=== PATIENT | male | born 1950 | race Caucasian/White ===

== ENCOUNTER → 2018-04-30 00:37 | Outpatient (CLI) | payer MEDICARE, OTHER, SELFPAY ==
--- NOTE | 2018-04-30 08:44 | DI.REPORT_ITS ---
SYMPTOM/DIAGNOSIS: THYROID NODULE 04.1 THYROID ULTRASOUND: 04/30 Thyroid ultrasound was performed according to the usual protocol. Right thyroid lobe measures 41 x 15 x 16 mm and left thyroid lobe measures 49 x 31 x 29 mm. There is a 7 mm in diameter solid wall circumscribed nodule of the lower pole of the right thyroid lobe which is avascular. There is a predominantly cystic nodule with internal solid component an calcifications of the left thyroid lobe lower pole measuring about 31 23 x 28 mm. This was present on previous examination of 10/21/17 and is essentially unchanged in size and appearance on the current examination. Right thyroid lobe nodule is also unchanged. CONCLUSION: Stable appearance of bilateral thyroid nodules, the largest on the left measuring about 3 cm in greatest diameter as described above.
== END ==
PROVIDERS: PCP Nurse Practitioner; Visit Provider Otolaryngology
DX: E04.2 Nontoxic multinodular goiter (principal)
CPT/HCPCS: 76536

== ENCOUNTER 2018-06-22 09:05 | Outpatient (CLI) | payer MEDICARE, OTHER, SELFPAY ==
[2018-06-22 09:32] LABS: Abs Immature Grans 0.01 k/cumm (0.0-0.09); Absolute Basophil Count 0.03 k/cumm (0.0-0.2); Absolute Eosinophil Count 0.33 k/cumm (0.0-0.7); Absolute Lymphocyte Count 2.97 k/cumm (1.2-3.4); Absolute Monocyte Count 0.69 k/cumm (0.11-0.7); Absolute Neutrophil Count 2.11 k/cumm (1.2-6.7); Basophils % 0.5; Eosinophils % 5.4; HCT 42.6 % (40.0-50.0); HGB 14.2 g/dL (13.5-17.5); Immature Grans % 0.2; Lymphocytes % 48.4; Mean Corp. HGB Concentration 33.3 g/dL (32.0-36.0); Mean Corpuscular Hemoglobin 31.8 pg (27.0-33.0); Mean Corpuscular Volume 95.5 fL (80-95); Mean Platelet Volume 9.6 fL (8.0-11.0); Monocytes % 11.2; Neutrophils % 34.3; Platelet Count 286 x1000/uL (130-400); RBC 4.46 m/cumm (4.50-6.00); RBC Distribution Width 13.3 % (11.8-14.1); White Blood Cell Count 6.14 k/cumm (4.4-10.8)
[2018-06-22 11:12] LABS: ALT 21 U/L (12-78); AST 18 U/L (15-37); Albumin 3.7 g/dL (3.4-5.0); Alkaline Phosphatase 76 U/L (46-116); Anion Gap 7.9 mmol/L (3-11); BUN 17 mg/dL (7-18); Bilirubin, Total 0.5 mg/dL (0.2-1.0); CO2 27.1 mmol/L (21.0-32.0); CREATININE 0.85 mg/dL (0.70-1.30); Calcium 8.7 mg/dL (8.5-10.1); Chloride 105 mmol/L (98-107); Cholesterol 198 mg/dL (50-200); Glucose 83 mg/dL (70-100); HDL Cholesterol 56 mg/dL (40-60); LDL CHOLESTEROL 119 mg/dL (<100); Potassium 4.4 mmol/L (3.5-5.1); Sodium 140 mmol/L (136-145); TSH (W/Ref FT4) 1.57 uIU/mL (0.358-3.74); Total Protein 6.8 g/dL (6.4-8.2); Triglyceride 98 mg/dL (30-150)
== END 2018-06-22 09:25 ==
PROVIDERS: PCP Nurse Practitioner; Visit Provider Urology
DX: I10 Essential (primary) hypertension (principal); E04.2 Nontoxic multinodular goiter; Z13.220 Encounter for screening for lipoid disorders
CPT/HCPCS: 36415; 80053; 80061; 83721; 84443; 85025

== ENCOUNTER → 2018-06-29 08:01 | Outpatient (BNVA) | payer MEDICARE, OTHER, SELFPAY | PROVIDERS: Visit Provider Urology | DX: R39.198 Other difficulties with micturition (principal); R97.20 Elevated prostate specific antigen [PSA] | CPT/HCPCS: 99213 ==

== ENCOUNTER 2018-06-29 08:53 | Outpatient (CLI) | payer MEDICARE, OTHER, SELFPAY ==
[2018-06-30 10:41] LABS: PSA, Diagnostic 6.9 ng/ml (0-4.5)
== END 2018-06-29 09:13 ==
PROVIDERS: PCP Nurse Practitioner; Visit Provider Urology
DX: R97.20 Elevated prostate specific antigen [PSA] (principal)
CPT/HCPCS: 36415; 99213; 84153

== ENCOUNTER 2018-11-19 07:01 | Outpatient (CLI) | payer MEDICARE, OTHER, SELFPAY ==
[2018-11-19 09:39] LABS: ALT 27 U/L (12-78); AST 16 U/L (15-37); Albumin 3.9 g/dL (3.4-5.0); Alkaline Phosphatase 80 U/L (46-116); Anion Gap 8.9 mmol/L (3-11); BUN 11 mg/dL (7-18); Bilirubin, Total 0.3 mg/dL (0.2-1.0); CO2 26.1 mmol/L (21.0-32.0); CREATININE 0.82 mg/dL (0.70-1.30); Calcium 9.1 mg/dL (8.5-10.1); Chloride 106 mmol/L (98-107); Cholesterol 227 mg/dL (50-200); Glucose 97 mg/dL (70-100); HDL Cholesterol 44 mg/dL (40-60); LDL CHOLESTEROL 152 mg/dL (<100); Potassium 3.8 mmol/L (3.5-5.1); Sodium 141 mmol/L (136-145); Total Protein 7.8 g/dL (6.4-8.2); Triglyceride 178 mg/dL (30-150)
== END 2018-11-19 07:21 ==
PROVIDERS: PCP Nurse Practitioner; Visit Provider Nurse Practitioner
DX: E78.5 Hyperlipidemia, unspecified (principal); I10 Essential (primary) hypertension
CPT/HCPCS: 36415; 80053; 80061; 83721

== ENCOUNTER 2018-11-25 00:47 | Outpatient (CLI) | payer MEDICARE, OTHER, SELFPAY ==
--- NOTE | 2018-11-25 09:30 | DI.US_ITS ---
SYMPTOM/DIAGNOSIS: SCREENING FOR AAA, FORMER SMOKER, PERSONAL H/O NICOTINE DEPENDENCE, Z87.891 AORTA ULTRASOUND: There is no evidence of an abdominal aortic aneurysm. There is no evidence of an iliac aneurysm. The proximal abdominal aorta measures 2.4 by 2.4 cm. The mid abdominal aorta measures 2 by 2 cm. The distal abdominal measures 1.8 by 1.9 cm. The right and left iliac artery measures 1.1 by 1.1 cm. SUMMARY: No evidence of an abdominal aortic or iliac artery aneurysm.
== END 2018-11-25 01:07 ==
PROVIDERS: PCP Nurse Practitioner; Visit Provider Nurse Practitioner
DX: Z13.6 Encounter for screening for cardiovascular disorders (principal); Z87.891 Personal history of nicotine dependence; I10 Essential (primary) hypertension; E78.5 Hyperlipidemia, unspecified
CPT/HCPCS: 76706

== ENCOUNTER 2018-12-22 13:04 | Outpatient (CLI) | payer MEDICARE, OTHER, SELFPAY ==
[2018-12-23 09:34] LABS: PSA, Diagnostic 7.9 ng/ml (0-4.5)
== END 2018-12-22 13:24 ==
PROVIDERS: PCP Nurse Practitioner; Visit Provider Urology
DX: R97.20 Elevated prostate specific antigen [PSA] (principal)
CPT/HCPCS: 84153

== ENCOUNTER → 2018-12-28 08:18 | Outpatient (BNVA) | payer MEDICARE, OTHER, SELFPAY | PROVIDERS: PCP Nurse Practitioner; Visit Provider Urology | DX: R97.20 Elevated prostate specific antigen [PSA] (principal); R39.11 Hesitancy of micturition; R35.0 Frequency of micturition | CPT/HCPCS: 99213 ==

== ENCOUNTER 2019-06-21 13:07 | Outpatient (CLI) | payer MEDICARE, OTHER, SELFPAY ==
[2019-06-22 09:54] LABS: PSA, Diagnostic 7.4 ng/ml (0-4.5)
== END 2019-06-21 13:27 ==
PROVIDERS: PCP Nurse Practitioner; Visit Provider Urology
DX: R97.20 Elevated prostate specific antigen [PSA] (principal)
CPT/HCPCS: 36415; 84153

== ENCOUNTER → 2019-06-28 08:00 | Outpatient (BNVA) | payer MEDICARE, OTHER, SELFPAY | PROVIDERS: PCP Nurse Practitioner; Referring Provider Nurse Practitioner; Visit Provider Urology | DX: R97.20 Elevated prostate specific antigen [PSA] (principal) | CPT/HCPCS: 99213 ==

== ENCOUNTER 2019-07-22 09:27 | Outpatient (CLI) | payer MEDICARE, OTHER, SELFPAY ==
--- NOTE | 2019-07-22 09:15 | DI.RAD_ITS ---
EXAM: XR CHEST 2V PA LATERAL CLINICAL HISTORY: ANDRES,excessive sweating,essential HTN,hyperlipidemia, I10, E78.5, R06.09,R61 COMPARISON: No exams were available for comparison FINDINGS: The heart is not enlarged. There is a mild left convex thoracic scoliosis. Lungs are predominantly clear. Note is made of small area of nodularity projected over the posterior aspect of the right 9th rib, this is likely nipple shadow. Question corresponding left-sided nodularity but somewhat asymme tric. The possibility of intrapulmonary nodule not excluded. Repeat PA chest with nipple markers req uested. No pleural effusion seen. No pneumothorax. No consolidation. IMPRESSION: Repeat PA chest with nipple markers requested to evaluate nodular radiodensities projected over the l christina bases as described above. Otherwise unremarkable study.
== END 2019-07-22 09:47 ==
PROVIDERS: PCP Nurse Practitioner; Visit Provider Nurse Practitioner
DX: R06.09 Other forms of dyspnea (principal); R61 Generalized hyperhidrosis; J98.4 Other disorders of lung
CPT/HCPCS: 71046

== ENCOUNTER 2019-07-23 07:22 | Outpatient (CLI) | payer MEDICARE, OTHER, SELFPAY ==
[2019-07-23 08:28] LABS: HCT 45.2 % (40.0-50.0); HGB 14.9 g/dL (13.5-17.5); Mean Corpuscular Hemoglobin 31.8 pg (27.0-33.0); Mean Corpuscular Volume 96.6 fL (80-95); Mean Platelet Volume 10.5 fL (8.0-11.0); Platelet Count 314 x1000/uL (130-400); RBC 4.68 m/cumm (4.50-6.00); White Blood Cell Count 5.71 k/cumm (4.4-10.8)
[2019-07-23 08:49] LABS: ALT 31 U/L (16-63); AST 17 U/L (15-37); Albumin 3.9 g/dL (3.4-5.0); Alkaline Phosphatase 65 U/L (46-116); Anion Gap 8.4 mmol/L (3-11); BUN 18 mg/dL (7-18); Bilirubin, Total 0.6 mg/dL (0.2-1.0); CO2 28.6 mmol/L (21.0-32.0); CREATININE 0.86 mg/dL (0.70-1.30); Calcium 9.2 mg/dL (8.5-10.1); Calculated LDL 147 mg/dL; Chloride 105 mmol/L (98-107); Cholesterol 230 mg/dL (50-200); Glucose 89 mg/dL (70-100); HDL Cholesterol 50 mg/dL (40-60); Potassium 4.6 mmol/L (3.5-5.1); Sodium 142 mmol/L (136-145); Total Protein 7.2 g/dL (6.4-8.2); Triglyceride 168 mg/dL (30-150)
== END 2019-07-23 07:42 ==
PROVIDERS: PCP Nurse Practitioner; Visit Provider Nurse Practitioner
DX: I10 Essential (primary) hypertension (principal); E78.5 Hyperlipidemia, unspecified; E04.1 Nontoxic single thyroid nodule
CPT/HCPCS: 36415; 80053; 80061; 85027; 84443

== ENCOUNTER 2019-08-04 00:41 | Outpatient (CLI) | payer MEDICARE, OTHER, SELFPAY ==
--- NOTE | 2019-08-04 10:10 | DI.US_ITS ---
APPROVED REPORT EXAM: Comprehensive 2D, Doppler, and color-flow Echocardiogram Patient Location: Out-Patient [facility]: [facility] ([place]) Rhythm: Bradycardia Indications: ANDRES hyperlipidemia, HTN, Hyperhidrosis. r06.09, r61, Conclusion Left Ventricle : The left ventricle is normal size. The left ventricular systolic function is normal. Borderline concentric left ventricular hypertrophy. There is normal LV segmental wall motion. Diasto lic function is indeterminate. There is evidence of elevated filling pressures. LVEF is 60-65%. Right Ventricle : The right ventricle is normal size. The right ventricular systolic function is norm al. Atria : Left atrium is moderately dilated. Right atrium is mildly dilated. Aortic Valve : Aortic valve is trileaflet. There is no aortic valvular stenosis. No aortic regurgitat ion is present. Mitral Valve : Mitral valve leaflets are thickened. Trivial mitral regurgitation. No evidence of mitr al valve stenosis. Tricuspid Valve : Tricuspid valve is not well visualized. Mild tricuspid regurgitation. Great Vessels : The IVC is dilated but collapses >50% with inspiration. Estimated RVSP is 20-24 mmHg . There is no prior echocardiogram available for comparison. Wall motion Left Ventricle The left ventricle is normal size. The left ventricular systolic function is normal. Borderline isidro ntric left ventricular hypertrophy. There is normal LV segmental wall motion. Diastolic function is i ndeterminate. There is evidence of elevated filling pressures. LVEF is 60-65%. Right Ventricle The right ventricle is normal size. The right ventricular systolic function is normal. Atria Left atrium is moderately dilated. Right atrium is mildly dilated. Aortic Valve Aortic valve is trileaflet. There is no aortic valvular stenosis. No aortic regurgitation is present. Mitral Valve Mitral valve leaflets are thickened. No evidence of mitral valve stenosis. Trivial mitral regurgitati on. Tricuspid Valve Tricuspid valve is not well visualized. Mild tricuspid regurgitation. Pulmonic Valve The pulmonary valve is normal in structure. Mild pulmonic regurgitation. Great Vessels The aortic root is normal in size. The ascending aorta is normal in size. The IVC is dilated but sheila apses >50% with inspiration. Estimated RVSP is 20-24 mmHg. Pericardium There is no pericardial effusion. 2D Dimensions IVSd 1.15 cm M: 0.6-1.2 LV EDV A2C 100.20 mL PWd 1.15 cm M: 0.6 - 1.2 LV EDV A4C 82.70 mL LVDd 4.80 cm M: 4.2 - 5.8 LA Volume Index A2C 34.01 mL/m2 LVDs 3.45 cm M: 2.5 - 4.0 LA Volume Index A4C 36.05 mL/m2 Aortic Root 3.25 cm M: 3.1 - 3.7 LA Volume Index Biplane 35.39 mL/m2 RA Area A4C 20.26 cm2 LA Area A4C 20.49 cm2 LVOT 2.10 cm (M/F) 1.5-2.5 LA Area A2C 20.12 cm2 Ascending Aorta 3.46 cm M: 2.6 - 3.4 EF AP4 63.24 % LVEF (Teich) 54.34 % EF AP2 73.65 % LVEF (Marcus's) 68.34 % M: 52 - 72 EF BP 68.34 % LV Volume 75.15 mL M: 62 - 150 LV Volume Index 41.51 mL/m2 M: 34 - 74 FS 28.15 % LV Diastology E/A Ratio 1.4 MED E' 0.07 (>0.07 m/s) LV E/e MED 17.00 (<14) LAT E' 0.10 (>0.1 m/s) LV E/e LAT 11.80 (<14) Pulm Vein s 0.72 m/s PV S/D Ratio 1.41 Pulm Vein d 0.51 m/s Pulm Vein a 0.32 m/s A-A Duration 135.37 msec Aortic Valve LVOT Area 3.60 cm2 LVOT Peak Don. 1.15 m/s LVOT Mean Don. 0.76 m/s LVOT Peak Gr. 5.45 mmHg CAROLANN Vmax Index 1.33 cm2/m2 LVOT Mean Gr. 2.70 mmHg LVOT VTI 0.25 m CAROLANN Mean Don. Index 1.26 cm2/m2 AoV Peak Don. 1.74 (0.5-1.3 m/s) AoV Mean Don. 1.20 m/s AO Peak GR. 12.16 mmHg AO Mean GR. 6.40 (<5 mmHg) CAROLANN (VTI) 3.50 (2.5-4.5 cm2) CAROLANN (VTI) Index 1.95 cm/m2 Mitral Valve MV E Max Don. 1.22 (0.4-1.3 m/s) MV A Velocity 0.85 (0.4-1.3 m/s) E/A Ratio 1.36 MV Decel. Time 160.20 (160-240 msec) MV PHT 46.46 msec MVA PHT 4.70 cm2 Pulmonary Valve PV Peak Velocity 0.93 (0.5-1.5 m/s) Tricuspid Valve TR P. Velocity 2.27 m/s TV Regurg Vmax 2.27 m/s RAP Estimate 8.00 mmHg RVSP 29.00 mmHg TR P. Gradient 20.50 mmHg
== END 2019-08-04 01:01 ==
PROVIDERS: PCP Nurse Practitioner; Visit Provider Nurse Practitioner
DX: R06.09 Other forms of dyspnea (principal); I10 Essential (primary) hypertension; E78.5 Hyperlipidemia, unspecified; I51.7 Cardiomegaly; R61 Generalized hyperhidrosis
CPT/HCPCS: 93306

== ENCOUNTER 2019-08-05 02:05 | Outpatient (CLI) | payer MEDICARE, OTHER, SELFPAY ==
--- NOTE | 2019-08-05 08:30 | ETT_ITS ---
APPROVED REPORT Exam: Exercise Treadmill Patient Location: Out-Patient Room/Bed: Stress Nurse: Melvi Lagos RN BMI: 24.58 Baseline Rhythm: Bradycardia Indications: Dyspnea. Hypertension. Hyperlipidemia. Hyperhidrois. Medical History Medical History: HTN Cardiac Medications: Aspirin, Lisinopril Allergies: No known drug allergies Cardiac Risk Factors: HTN, Hyperlipidemia, former smoker 1 pack a day for 20 years Pretest Chest Pain Characteristics: Dyspnea Exercise History: Physically active Physical Disabilities: Legs. Wjjotkr-Asalg-ncpgh disorder. Lung Sounds: Clear to auscultation Heart Sounds: Irregular, Irregular Stress Test Details Test: Exercise stress testing was performed using a Luiz protocol. Rest Stress HR Resting HR: 43 bpm Max Heart Rate (APMHR): 153 bpm Resting HR Supine: 43 bpm Target HR (85% APMHR): 130 bpm Resting HR Standin bpm Max HR Achieved: 128 bpm % of APMHR: 83 Recovery HR: 76 bpm HR response to stress: Normal HR response to stress BP Resting BP Supine: 162/82 mmHg Resting BP Standin/74 mmHg Max BP: 190/80 mmHg Recovery BP: 168/90 mmHg BP response to stress: Normal blood pressure response to stress. ECG Resting ECG: Sinus Bradycardia Ectopy: PACs. ST Change: No significant ST segment changes. Arrhythmia: None Recovery ECG: Sinus Rhythm Recovery ST Change: No significant ST segment changes. Recovery Arrhythmia: None Clinical Time of Stop for Luiz: 0903 Reason for Termination: Unable to tolerate stage 4 due to legs/balance issues Stress Symptoms: Leg Fatigue Exercise duration: 9 min3 sec Highest Stage Achieved: Stage 3: 3.4 mph at 14% grade. Exercise capacity: 10.24 METs Functional Capacity: Average Capacity Scale: Active Angina Score: None Stress ECG Conclusion 1. She exercised for 9 minutes (10 METS) presents average exercise capacity. 2. There was no evidence of ischemia on ECG during stress. 3. The Linares Score (8) estimates an annual cardiovascular mortality of 0% and a five year survival of 95%. Using the Linares Score there is a low probability of any angiographic coronary disease. Protocol Used: Luiz Protocol Stress Test Summary STAGE Time (mins) Speed (mph) Grade (%) HR BP SYMPTOMS METS Supine 43 162/82 Standing 59 148/74 1 3 1.7 10 90 160/80 4.6 2 6 2.5 12 103 174/82 7 3 9 3.4 14 128 10.2 4 12 4.2 16 5 15 5.0 1 min recovery 108 188/80 3 min recovery 83 190/80 6 min recovery 76 168/90
== END 2019-08-05 02:25 ==
PROVIDERS: PCP Nurse Practitioner; Visit Provider Nurse Practitioner
DX: R06.09 Other forms of dyspnea (principal); I10 Essential (primary) hypertension; E78.5 Hyperlipidemia, unspecified; R61 Generalized hyperhidrosis; Z87.891 Personal history of nicotine dependence
CPT/HCPCS: 93016; 93018; 93017

== ENCOUNTER 2019-11-25 01:37 | Outpatient (CLI) | payer MEDICARE, OTHER, SELFPAY ==
--- NOTE | 2019-11-25 10:00 | DI.US_ITS ---
EXAM: US THYROID CLINICAL HISTORY: E04.1 THYROID NODULE. TECHNIQUE: Ultrasound thyroid performed using standard protocol. COMPARISON: THYROID ULTRASOUND from 10/21/2017 THYROID ULTRASOUND from 04/30/2018 FINDINGS: ISTHMUS: 3 mm, 4 millimeter circumscribed nodule. RIGHT LOBE: Size: 4.2 x 1.4 x 1.3 cm Echogenicity: Normal. Vascularity: Normal. Nodules: 6 millimeter colloid cyst LEFT LOBE: Size: 5.1 x 2.6 x 3.1 cm Echogenicity: Normal. Vascularity: Normal. Nodules: 3.0 x 2.2 x 3.3 centimeter cystic nodule with internal solid components showing vascularity. Findings appear unchanged when compared with previous exams. OTHER FINDINGS: No adenopathy in the neck IMPRESSION: Stable appearance of mixed cystic and solid mass in the mid to lower pole of the left lobe of the thy roid. DATA REPOSITORY:
== END 2019-11-25 01:57 ==
PROVIDERS: PCP Nurse Practitioner; Visit Provider Otolaryngology
DX: E04.1 Nontoxic single thyroid nodule (principal); E07.89 Other specified disorders of thyroid
CPT/HCPCS: 76536

== ENCOUNTER 2020-01-11 01:01 | Outpatient (CLI) | payer MEDICARE, OTHER, SELFPAY ==
[2020-01-12 10:46] LABS: PSA, Diagnostic 7.4 ng/mL (0.0-4.5)
== END 2020-01-11 01:21 ==
PROVIDERS: PCP Nurse Practitioner; Visit Provider Urology
DX: R97.20 Elevated prostate specific antigen [PSA] (principal)
CPT/HCPCS: 36415; 84153

== ENCOUNTER → 2020-01-14 10:10 | Outpatient (BNVA) | payer MEDICARE, OTHER, SELFPAY | PROVIDERS: PCP Nurse Practitioner; Referring Provider Nurse Practitioner; Visit Provider Urology | DX: R97.20 Elevated prostate specific antigen [PSA] (principal) | CPT/HCPCS: 99213; 99442 ==

== ENCOUNTER 2020-07-18 03:08 | Outpatient (CLI) | payer MEDICARE, OTHER, SELFPAY ==
[2020-07-20 12:48] LABS: PSA, Diagnostic 7.7 ng/ml (0-4.5)
== END 2020-07-18 03:28 ==
PROVIDERS: PCP Nurse Practitioner; Visit Provider Urology
DX: R97.20 Elevated prostate specific antigen [PSA] (principal)
CPT/HCPCS: 36415; 84153

== ENCOUNTER → 2020-07-25 08:28 | Outpatient (BNVA) | payer MEDICARE, OTHER, SELFPAY | PROVIDERS: PCP Nurse Practitioner; Referring Provider Nurse Practitioner; Visit Provider Urology | DX: R19.7 Diarrhea, unspecified (principal); R97.20 Elevated prostate specific antigen [PSA] | CPT/HCPCS: 99213 ==

== ENCOUNTER 2021-01-04 04:05 | Outpatient (CLI) | payer MEDICARE, OTHER, SELFPAY ==
[2021-01-04 09:28] LABS: HCT 43.8 % (40.0-50.0); HGB 14.2 g/dL (13.5-17.5); MCH 31.3 pg (27.0-33.0); MCHC 32.4 % (32.0-36.0); MCV 96.5 fL (80-95); MPV 9.7 fL (8.0-11.0); Platelet Count 331 10^3/uL (130-400); RBC 4.54 10^6/uL (4.36-5.78); RDW 12.2 % (11.8-14.1); RDW-SD 43.4 fL; WBC 6.57 10^3/uL (4.4-10.8)
[2021-01-04 10:13] LABS: ALT 29 U/L (16-63); AST 16 U/L (15-37); Albumin 3.8 g/dL (3.4-5.0); Alkaline Phosphatase 78 U/L (46-116); Anion Gap 8.3 mmol/L (3-11); BUN 17 mg/dL (7-18); Bilirubin, Total 0.4 mg/dL (0.2-1.0); CO2 27.7 mmol/L (21.0-32.0); CREATININE 0.9 mg/dL (0.70-1.30); Calcium 9.1 mg/dL (8.5-10.1); Calculated LDL 128 mg/dL (<100); Chloride 108 mmol/L (98-107); Cholesterol 210 mg/dL (<200); Glucose 92 mg/dL (74-106); HDL Cholesterol 50 mg/dL (40-60); Potassium 4.9 mmol/L (3.5-5.1); Sodium 144 mmol/L (136-145); Total Protein 7.1 g/dL (6.4-8.2); Triglyceride 164 mg/dL (<150)
[2021-01-04 18:12] LABS: PSA, Diagnostic 7.7 ng/mL (0.0-4.5)
== END 2021-01-04 04:06 | disposition home or self-care (01) ==
LOC: LBO 04:06
PROVIDERS: PCP Nurse Practitioner; Visit Provider Urology
DX: I10 Essential (primary) hypertension (principal); E78.5 Hyperlipidemia, unspecified; R97.20 Elevated prostate specific antigen [PSA]; N52.9 Male erectile dysfunction, unspecified; G47.33 Obstructive sleep apnea (adult) (pediatric); G60.0 Hereditary motor and sensory neuropathy; H90.3 Sensorineural hearing loss, bilateral
CPT/HCPCS: 36415; 80053; 80061; 85027; 84153

== ENCOUNTER → 2021-01-26 08:58 | Outpatient (BNVA) | payer MEDICARE, OTHER, SELFPAY | PROVIDERS: PCP Nurse Practitioner; Referring Provider Nurse Practitioner; Visit Provider Urology | DX: R35.1 Nocturia (principal); R97.20 Elevated prostate specific antigen [PSA] | CPT/HCPCS: 99213 ==

== ENCOUNTER 2021-07-23 03:54 | Outpatient (CLI) | payer MEDICARE, SELFPAY ==
[2021-07-23 17:07] LABS: PSA, Diagnostic 7.5 ng/mL (0.0-4.5)
== END 2021-07-23 03:55 | disposition home or self-care (01) ==
LOC: LBO 03:54
PROVIDERS: PCP Nurse Practitioner; Visit Provider Urology
DX: R97.20 Elevated prostate specific antigen [PSA] (principal)
CPT/HCPCS: 36415; 84153

== ENCOUNTER → 2021-07-27 08:24 | Outpatient (BNVA) | payer MEDICARE, OTHER, SELFPAY | PROVIDERS: PCP Nurse Practitioner; Referring Provider Nurse Practitioner; Visit Provider Urology | DX: R39.89 Other symptoms and signs involving the genitourinary system (principal); R97.20 Elevated prostate specific antigen [PSA] | CPT/HCPCS: 99213 ==

== ENCOUNTER 2021-12-12 03:12 | Outpatient (CLI) | payer MEDICARE, SELFPAY ==
[2021-12-12 08:33] LABS: HCT 43.8 % (40.0-50.0); HGB 14.3 g/dL (13.5-17.5); MCHC 32.6 % (32.0-36.0); MPV 9.4 fL (8.0-11.0); Platelet Count 272 10^3/uL (130-400); RBC 4.47 10^6/uL (4.36-5.78); RDW 12.8 % (11.8-14.1)
[2021-12-12 10:02] LABS: ALT 36 U/L (16-63); AST 24 U/L (15-37); Alkaline Phosphatase 67 U/L (46-116); Anion Gap 6.6 mmol/L (3-11); BUN 17 mg/dL (7-18); Bilirubin, Total 0.6 mg/dL (0.2-1.0); CO2 28.4 mmol/L (21.0-32.0); CREATININE 0.9 mg/dL (0.70-1.30); Chloride 106 mmol/L (98-107); Glucose 86 mg/dL (74-106); Potassium 4.9 mmol/L (3.5-5.1); Sodium 141 mmol/L (136-145); Total Protein 7.3 g/dL (6.4-8.2)
[2021-12-13 14:53] LABS: Calculated LDL 147 mg/dL (<100); Cholesterol 248 mg/dL (<200); HDL Cholesterol 62 mg/dL (40-60); Triglyceride 196 mg/dL (<150)
== END 2021-12-12 03:13 | disposition home or self-care (01) ==
LOC: LBO 03:13
PROVIDERS: PCP Nurse Practitioner; Visit Provider Nurse Practitioner
DX: E78.5 Hyperlipidemia, unspecified (principal); I10 Essential (primary) hypertension
CPT/HCPCS: 36415; 80053; 80061; 85027

== ENCOUNTER 2022-01-15 16:45 | Emergency (ER) | payer MEDICARE, SELFPAY ==
[2022-01-15] VITALS (26 sets, daily range): BP systolic 142–180; BP diastolic 70–99; PULSE 48–75; RESP 10–21; TEMP 36.6; O2SAT 97–100
--- NOTE | 2022-01-15 17:24 | ED.GENADUL_ITS ---
Discharge Plan Disposition Patient Disposition: HOME Condition: Stable Discharge Details Clinical Impression: Acute GI bleeding Primary Care Provider: Anne-Marie Palencia ED Provider: Gonzalez Chew Home Meds and New Rx's Prescriptions: Continued lisinopril 10 mg tablet 10 mg PO DAILY Qty: 90 3RF lidocaine 1.8 % adhesive patch,medicated 1 patch topical DAILY 0RF Rx Instructions: leave on most painful area for up to 12 hrs loratadine 10 MG tablet 10 mg PO PRN 0RF aspirin [Aspir-81] 81 MG tablet,delayed release (DR/EC) 81 mg PO DAILY Qty: 1 11RF acetaminophen 500 MG tablet 1,000 mg PO PRN 0RF ibuprofen 600 MG tablet 600 mg PO PRN0RF Varicella-Zoster Ge/As01b/Pf [Shingrix Vial Kit] 50 MCG INJ 50 mcg IM ONCE Qty: 1 1RF Discharge Instructions Instructions: Rectal Bleeding (ED) Additional Instructions: Please watch for new or worsening symptoms and return to the ER for any concerns. I personally spoke with our surgical team, Dr. Springer, will be having her office reach out to you to set up an outpatient appointment and likely colonoscopy for further evaluation. Referrals: Leatha Springer DO [OSTEOPATHIC DOCTOR] - Discharge Data Discharge Date/Time-TO BE ENTERED AT DEPARTURE: 01/15/22 19:25 Medical Decision Making 71-year-old gentleman presents to the ER reporting blood in his stool with his last 3 bowel movements this afternoon, otherwise is asymptomatic. Denies history of GI bleed. Reports last colonoscopy approximately 9 years ago. Clinically he appears well, nontoxic, hemodynamically stable. Rectal examination reveals dried blood, he does have a single external nontender hemo rrhoid but I am unable to visualize an obvious source of bleeding. Please obtain IV access, routine screening laboratory values and coags and reassess. Laboratory values reveal no evidence of leukocytosis. Hemoglobin of 12.2 hematocrit 37.1 which is down respectively from 14.3 and 43.8 back in November. Platelet count 321. Electrolytes unremarkable, creatinine 0.2 with a GFR greater than 60. BUN 18. Lipase 99. In the setting of no abdominal pain, fever, leukocytosis, etc., I feel as though CT imaging of the abdomen is likely little value in this case. Patient likely requires colonoscopy. Patient remains hemodynamically stable. He has mild anemia but otherwise is asymptomatic, appears well. He does have an external hemorrhoid with dried blood, question is simply could be secondary to bleeding hemorrhoid; however, I do believe he should have an urgent colonoscopy. I do not believe that he requires admission. I contacted our surgical team, Dr. Springer, we discussed his case. She agrees the patient does not require admission. She will have her team reach out to him tomorrow to set up outpatient evaluation and colonoscopy. This plan was discussed both with patient and who are comfortable. Strict discharge and return precautions were provided. Patient understands, is agreeable to this plan, and has no additional questions or concerns upon discharge. This documentation was generated using [employer]ation system, please disregard any oddities of phrase or misspellings. Medical Records Medical records reviewed: Yes I reviewed the patient's medical records. Lab Data Lab results reviewed: Yes I reviewed the patient's lab results. Labs: Laboratory Tests Range/Units 01/15/22 01/15/22 01/15/22 17:26 17:26 17:26 WBC (4.4-10.8) 10^3/uL 8.10 RBC (4.36-5.78) 10^6/uL 3.82 L Hgb (13.5-17.5) g/dL 12.2 L Hct (40.0-50.0) % 37.1 L MCV (80-95) fL 97 H MCH (27.0-33.0) pg 31.9 MCHC (32.0-36.0) % 32.9 RDW (11.8-14.1) % 12.8 Plt Count (130-400) 10^3/uL 321 MPV (8.0-11.0) fL 9.6 Immature Gran % 0.2 Neutrophils % 56.1 Lymphocytes % 29.6 Monocytes % 11.5 Eosinophils % 2.2 Basophils % 0.4 Nucleated RBC % (0.0-0.3) % 0.0 Absolute Neutrophils (1.2-6.7) 10^3/uL 4.54 Absolute Lymphocytes (1.2-3.4) 10^3/uL 2.40 Absolute Monocytes (0.1-0.8) 10^3/uL 0.93 H Absolute Eosinophils (0.0-0.7) 10^3/uL 0.18 Absolute Basophils (0.0-0.2) 10^3/uL 0.03 PT (9.3-11.0) sec 9.9 INR (0.9-1.1) 1.0 Sodium (136-145) mmol/L 139 Potassium (3.5-5.1) mmol/L 4.4 Chloride (98-107) mmol/L 106 Carbon Dioxide (21.0-32.0) mmol/L 25.8 Anion Gap (3-11) mmol/L 7.2 BUN (7-18) mg/dL 18 Creatinine (0.70-1.30) mg/dL 0.8 Estimated GFR/1.73 m2 (mL/min/1.73m2) >= 60.00 Glucose (74-106) mg/dL 107 H Calcium (8.5-10.1) mg/dL 8.4 L Total Bilirubin (0.2-1.0) mg/dL 0.3 AST (15-37) U/L 20 ALT (16-63) U/L 26 Alkaline Phosphatase (46-116) U/L 78 Total Protein (6.4-8.2) g/dL 7.1 Albumin (3.4-5.0) g/dL 3.7 Lipase (73-393) U/L 99 HPI General Mode of arrival: ambulatory . Date/Time Provider Initiated Documentation: 01/15/22 16:53 . Limitations to Documentation: no limitations . Information obtained by: patient and family . HPI Narrative: This is a 71-year-old gentleman, past medical history that includes hypertension, chronic low back pain, not anticoagulated, reports his last colonoscopy about 9 years ago, presenting to the ER today reporting 3 bowel movements with bright red blood mixed in. He states he had a normal bowel movement this morning and then subsequently 3 loose bowel movements this afternoon with blood. He denies history of GI bleeding, easy bruising or bleeding. He denies recent illness or trauma, headache, weakness, fever, visual changes, chest pain, shortness of breath, abdominal pain, nausea, vomiting, dysuria, hematuria, black tarry stools. He does admit to a history of hemorrhoids. Denies any rectal pain. Related Data Home Medications Medication Instructions Recorded Confirmed aspirin 81 mg tablet,delayed 81 mg PO DAILY #1 tab-cap 03/07/14 11/29/21 release (Aspir-) loratadine 10 mg tablet 10 mg PO PRN 03/07/14 11/29/21 acetaminophen 500 mg tablet 1,000 mg PO PRN 01/12/18 11/29/21 ibuprofen 600 mg tablet 600 mg PO PRN 01/12/18 11/29/21 lidocaine 1.8 % topical patch 1 patch TOPICAL DAILY 11/29/21 11/29/21 lisinopril 10 mg tablet 10 mg PO DAILY #90 tab 12/17/21 12/17/21 Previous Rx's Medication Instructions Recorded lisinopril 10 mg tablet 10 mg PO DAILY #90 tab 12/17/21 Allergies Allergy/AdvReac Type Severity Reaction Status Date / Time Environmental Allergy Mild Rhinitis Uncoded 01/15/22 16:53 General Stated Complaint: GI Bleed ANDRZEJ: 2 Review of Systems Constitutional Constitutional: Denies fatigue, Denies fever(s), Denies headache(s) and Denies weakness Eyes Eyes: Denies change in vision ENT Ears, Nose, Mouth, and Throat: Denies headache(s) and Denies neck pain Cardiovascular Cardiovascular: Denies chest pain and Denies dyspnea Respiratory Respiratory: Denies cough and Denies dyspnea Gastrointestinal Gastrointestinal: Denies abdominal pain, Denies melena, Reports hematochezia, Denies constipation, Denies diarrhea, Reports loose stools, Denies nausea and Denies vomiting Genitourinary Genitourinary: Denies hematuria and Denies dysuria Musculoskeletal Musculoskeletal: Reports back pain (chronic) and Denies neck pain Integumentary/Breasts Skin/Breast: Denies rash Neurologic Neurologic: Denies headache(s) and Denies weakness Endocrine Endocrine: Denies fatigue Hematologic/Lymphatic Hematologic/Lymphatic: Denies easy bleeding and Denies easy bruising PFSH All Active Problems Acute GI bleeding (Acute) Gait disorder (Acute) Balance disorder (Acute) Conductive hearing loss, external ear (Acute) Impacted cerumen, bilateral (Acute) Left thyroid nodule (Acute) Insomnia, unspecified (Acute) Obstructive sleep apnea (adult) (pediatric) (Acute) Collapse of left external ear canal (Acute) Sensorineural hearing loss (SNHL) of both ears (Acute) Impacted cerumen of right ear (Acute) Fatigue (Acute) SOB (shortness of breath) (Acute) 3/14/20 Sleep Study ( [facility]) Witnessed apneic spells (Acute) Bilateral foot pain (Acute) reported 09/21/18-[facility]. Dr. Brando Franco. Thyroid nodule (Acute 10/30/17) ENT 10/30/17 recheck in 6 months RH 04/30/18 thyroid US-no change in L sided nodule per ov note- 11/25/19 follow up in 1 yr. cgc Sacral radiculopathy (Acute 02/02/14) S/P carpal tunnel release (Acute 02/03/18) Low back pain (Acute 02/02/14) Hyperlipidemia (Acute 03/07/14) PCEq risk 11.2%; LDL baseline 134; declines statin Essential hypertension (Acute 06/19/16) Erectile dysfunction of organic origin (Acute 03/14/17) Elevated PSA (Acute 12/29/17) DJD (degenerative joint disease), cervical (Acute 10/08/17) 10/07/17 MRI central spinal stenosis. No cord impingment Tvtoyvk-Dljcw-Gokvy disease type 1 (Acute 02/02/14) Arthritis of spine (Acute 02/02/14) Surgical History H/O colonoscopy H/O foot surgery H/O vasectomy History of carpal tunnel surgery of right wrist History of meniscectomy of left knee Family History Other Cancer Muscular dystrophy Social History Smoking/Tobacco Use Status: Former Tobacco Use Smoking risk assessment performed?: Yes Alcohol Intake: current Alcohol Intake frequency: 3 or more drinks per day Alcohol type: wine Details: 3 good glasses of wine a day. Drug use: Never Substance use type: does not use Household members: spouse Housing: house Number of Children: 1 Communication Needs: Hard of Hearing and Corrective Lenses Pets and animals: Yes (1 cat) Pets and animals: cat(s) What is your relationship status?: Panel score (0-1 are the most socially isolated patients): 1 Seatbelt use: always Drive intox or ride w/intox local intermodal truck driver: No Working smoke detector in home: Yes Fire extinguisher in home: Yes Carbon monox detector in home: No Do you feel safe in your relationship?: Yes Exam Const General: cooperative, healthy appearing, comfortable and no acute distress Orientation: alert, awake and oriented x3 HENMT Head: normal to inspection, normocephalic and atraumatic Face and sinus: normal facial exam Mouth: moist mucous membranes Eyes General: appearance normal, both eyes and all related structures Conjunctivae: conjunctivae normal Neck Neck: normal visual inspection, full ROM, trachea midline and supple Resp Effort & Inspection: normal respiratory effort and able to speak in complete sentences Auscultation: clear to auscultation bilaterally Cardio Rate: regular rate Rhythm: regular rhythm GI Inspection: normal to inspection Palpation: soft, not firm, no guarding, no pulsatile masses and nontender Auscultation: normal bowel sounds Rectal Exam: normal sphincter tone, abnormal stool blood-tinged, heme positive stool and hemorrhoids (External, nontender, nonthrombosed. Dried blood but no active bleeding) Back/Spine/Pelvis Back: No back tenderness Skin General skin exam: no rashes or lesions noted Neuro General: patient alert, patient awake, moves all extremities and no focal motor deficits Cognition: normal cognition Speech: speech normal Gait: normal gait Motor: muscle tone normal throughout Sensory Exam: no sensory deficits noted Extrem General: normal to inspection, full ROM, capillary refill normal, no pedal edema and no calf tenderness Psych Appearance: grossly normal Mental Status: mental status grossly normal Course Vital Signs Vital signs: Vital Signs Temperature 36.6 C 01/15/22 16:49 Pulse 75 01/15/22 16:49 Blood Pressure 177/99 H 01/15/22 16:49 Pulse Oximetry 99 01/15/22 16:49 Temperature 36.6 C 01/15/22 16:49 Temperature Source Temporal Artery Scan 01/15/22 16:49 Pulse 75 01/15/22 16:49 Respiratory Effort Non-Labored 01/15/22 16:51 Blood Pressure 177/99 H 01/15/22 16:49 Blood Pressure Position Sitting 01/15/22 16:49 Pulse Oximetry 99 01/15/22 16:49 Oxygen Delivery Method Room Air 01/15/22 16:49 Oxygen Flow Rate 0 01/15/22 16:49 Pain Level 0 01/15/22 16:49 PAWSS Have you Been Recently Intoxicated or Drunk Within the Last 30 days?: Yes Have you Ever Experienced Previous Episodes of Alcohol Withdrawal?: No Have you ever Experienced Withdrawal Seizures?: No Have you ever Experienced Delirium Tremens(DT)s?: No Have you ever undergone Alcohol Rehabilitation Treatment (i.e, inpt ot outpatient treatment programs)?: No Have you ever Experienced Blackouts?: No Have you ever Combined Alcohol with other Downers within the last 90 days?: No Have you ever Combined Alcohol with any other Substance of Abuse during the last 90 days?: No Result: 1
[2022-01-15 17:40] LABS: Abs Immature Grans 0.02 10^3/uL (0.0-0.06); Absolute Basophil Count 0.03 10^3/uL (0.0-0.2); Absolute Eosinophil Count 0.18 10^3/uL (0.0-0.7); Absolute Monocyte Count 0.93 10^3/uL (0.1-0.8); Absolute Neutrophil Count 4.54 10^3/uL (1.2-6.7); Basophils % 0.4; Eosinophils % 2.2; HCT 37.1 % (40.0-50.0); HGB 12.2 g/dL (13.5-17.5); Immature Grans % 0.2; Lymphocytes % 29.6; MCH 31.9 pg (27.0-33.0); MCHC 32.9 % (32.0-36.0); MCV 97 fL (80-95); MPV 9.6 fL (8.0-11.0); Monocytes % 11.5; Neutrophils % 56.1; Platelet Count 321 10^3/uL (130-400); RBC 3.82 10^6/uL (4.36-5.78); RDW 12.8 % (11.8-14.1); RDW-SD 45.8 fL
[2022-01-15 17:45] LABS: Prothrombin Time 9.9 sec (9.3-11.0)
[2022-01-15 18:01] LABS: ALT 26 U/L (16-63); AST 20 U/L (15-37); Albumin 3.7 g/dL (3.4-5.0); Alkaline Phosphatase 78 U/L (46-116); Anion Gap 7.2 mmol/L (3-11); BUN 18 mg/dL (7-18); Bilirubin, Total 0.3 mg/dL (0.2-1.0); CO2 25.8 mmol/L (21.0-32.0); CREATININE 0.8 mg/dL (0.70-1.30); Calcium 8.4 mg/dL (8.5-10.1); Chloride 106 mmol/L (98-107); Glucose 107 mg/dL (74-106); Potassium 4.4 mmol/L (3.5-5.1); Sodium 139 mmol/L (136-145); Total Protein 7.1 g/dL (6.4-8.2)
[2022-01-15 18:11] LABS: Lipase 99 U/L (73-393)
== END 2022-01-15 19:25 | disposition home or self-care (01) ==
PROVIDERS: Emergency Provider Physician Assistant; PCP Nurse Practitioner
DX: K92.2 Gastrointestinal hemorrhage, unspecified (principal)
CPT/HCPCS: 80053; 83690; 99282; 85025; 85610; 99283

== ENCOUNTER 2022-01-17 03:34 | Outpatient (CLI) | payer MEDICARE, SELFPAY ==
[2022-01-17 08:45] LABS: Abs Immature Grans 0.03 10^3/uL (0.0-0.06); Absolute Basophil Count 0.04 10^3/uL (0.0-0.2); Absolute Eosinophil Count 0.25 10^3/uL (0.0-0.7); Absolute Lymphocyte Count 2.41 10^3/uL (1.2-3.4); Absolute Neutrophil Count 3.25 10^3/uL (1.2-6.7); Basophils % 0.6; Eosinophils % 3.8; HCT 35.4 % (40.0-50.0); HGB 11.6 g/dL (13.5-17.5); Immature Grans % 0.5; Lymphocytes % 36.6; MCH 32.3 pg (27.0-33.0); MCHC 32.8 % (32.0-36.0); MCV 99 fL (80-95); MPV 9.4 fL (8.0-11.0); Monocytes % 9.1; Neutrophils % 49.4; Platelet Count 340 10^3/uL (130-400); RBC 3.59 10^6/uL (4.36-5.78); RDW 12.5 % (11.8-14.1); WBC 6.58 10^3/uL (4.4-10.8)
[2022-01-17 10:04] LABS: Iron 82 ug/dL (65-175); Total Iron Binding Capacity 302 ug/dL (250-450); Transferrin Sat 27 % (20-55)
[2022-01-17 10:06] LABS: Ferritin 202 ng/mL (26-388); Vitamin B12 450 pg/mL (193-986)
[2022-01-17 18:35] LABS: PSA, Diagnostic 6.2 ng/mL (<=4.5)
[2022-01-22 01:32] LABS: Thiamine (Vitamin B1), WB 100 nmol/L (70-180)
== END 2022-01-17 03:35 | disposition home or self-care (01) ==
LOC: LBO 03:34
PROVIDERS: Surgery; PCP Nurse Practitioner; Visit Provider Urology
DX: R97.20 Elevated prostate specific antigen [PSA] (principal); G60.9 Hereditary and idiopathic neuropathy, unspecified; K92.2 Gastrointestinal hemorrhage, unspecified
CPT/HCPCS: 36415; 99214; 99242; 82607; 82728; 83540; 83550; 84153; 84425; 85025

== ENCOUNTER 2022-03-04 02:24 | Outpatient (CLI) | payer MEDICARE, SELFPAY ==
[2022-03-04 12:14] LABS: Source Nasal/Nares
[2022-03-04 15:41] LABS: COVID-19 PCR Negative (Negative)
== END 2022-03-04 02:25 | disposition home or self-care (01) ==
LOC: LBO 02:26
PROVIDERS: PCP Nurse Practitioner; Visit Provider Surgery
DX: Z20.822 Contact with and (suspected) exposure to COVID-19 (principal); Z01.818 Encounter for other preprocedural examination
CPT/HCPCS: 87635; U0005

== ENCOUNTER 2022-03-05 11:27 | Day surgery (SDC) | payer MEDICARE, SELFPAY ==
--- NOTE | 2022-03-04 18:33 | W.PM.HP.N ---
Assessment and Plan Assessment and plan (1) Wxafryy-Dhlbs-Dacbq disease type 1: Status: Acute (2) SARS-CoV-2 positive: Status: Acute (3) Obstructive sleep apnea (adult) (pediatric): Status: Acute (4) Essential hypertension: Status: Acute (5) Rectal bleeding: Status: Acute Assessment and plan: Informed consent is obtained for the procedural (explained in simple layman's terms that the pt. and/or family could understand) explaining risks vs benefits and alternatives to the procedure and consequences if we do not do the procedure and need/rational for the procedure. Risks include but are not limited to: bleeding, infection, perforation of esophagus, stomach, colon, small intestines, bronchus or trachea, or PTX. This would necessitate emergency surgery to repair the damage w/ possible ostomy; and other associated complications w/ the required surgery. Also complications of anesthesia including aspiration, IA/CVA/. Repeat lab work today as well to follow-up on his anemia (6) Acute on chronic blood loss anemia: Status: Acute History of Present Illness Narrative: Clinic consult 01/17: t was in the ED 01/15 w/ BRBPR. ? He had 5-6BM.? nothing friday.? Today.? He did have a BM.? Drak pruple to BR blood.? Not as heavy bleeding as friday.? Taking asa/ibuprofen daily.? He has not noticed taina wt loss.? He is eating ok.? Former smoker. ? He denies constipation or straining to go to the bathroom.? He loves peanuts.? Patient is here today for follow-up colonoscopy for rectal bleeding. His hemoglobin on 01/17 was 11.6. This needs to be repeated today on 03/05. He completed the bowel prep. The resulting effluent is a clear yellow. He has had no further bleeding. He is not currently having any abdominal pain or nausea today. He is not having any chest pain/chest pressure or shortness of breath. He has no productive cough or fevers. He has no URI signs and symptoms. Since I saw him in the clinic last he has had no changes in his medications or health status. All questions are answered today and he is stable for procedure Review of Systems All systems reviewed & are unremarkable except as noted in HPI and below PFSH All Active Problems (Updated 03/04/22 @ 18:50 by Leatha Springer DO) Acute on chronic blood loss anemia (Acute) Rectal bleeding (Acute) Arthritis of spine (Acute 02/02/14) Ecfmxjz-Uiith-Ddxsv disease type 1 (Acute 02/02/14) DJD (degenerative joint disease), cervical (Acute 10/08/17) 10/07/17 MRI central spinal stenosis. No cord impingment Elevated PSA (Acute 12/29/17) Erectile dysfunction of organic origin (Acute 03/14/17) Essential hypertension (Acute 06/19/16) Hyperlipidemia (Acute 03/07/14) PCEq risk 11.2%; LDL baseline 134; declines statin Low back pain (Acute 02/02/14) S/P carpal tunnel release (Acute 02/03/18) Sacral radiculopathy (Acute 02/02/14) Thyroid nodule (Acute 10/30/17) ENT 10/30/17 recheck in 6 months 04/30/18 thyroid US-no change in L sided nodule per ov note- 11/25/19 follow up in 1 yr. cgc Bilateral foot pain (Acute) reported 09/21/[facility]. Dr. Brando Franco. Witnessed apneic spells (Acute) SOB (shortness of breath) (Acute) 11/27/19 Sleep Study ( [facility]) Fatigue (Acute) Impacted cerumen of right ear (Acute) Sensorineural hearing loss (SNHL) of both ears (Acute) Collapse of left external ear canal (Acute) Obstructive sleep apnea (adult) (pediatric) (Acute) Insomnia, unspecified (Acute) Left thyroid nodule (Acute) Impacted cerumen, bilateral (Acute) Conductive hearing loss, external ear (Acute) Balance disorder (Acute) Gait disorder (Acute) SARS-CoV-2 positive (Acute ~01/27/22) Surgical History H/O colonoscopy H/O foot surgery 1959's H/O vasectomy History of carpal tunnel surgery of right wrist History of meniscectomy of left knee Family History Other Cancer Muscular dystrophy Social History Smoking/Tobacco Use Status: Former Tobacco Use Quit Date: 04/14/85 Smoking risk assessment performed?: Yes Alcohol Intake: current Alcohol Intake frequency: 3 or more drinks per day Alcohol type: wine Details: 3 good glasses of wine a day. Drug use: Never Substance use type: does not use Household members: spouse Housing: house Number of Children: 1 Communication Needs: Hard of Hearing and Corrective Lenses Pets and animals: Yes (1 cat) Pets and animals: cat(s) What is your relationship status?: Panel score (0-1 are the most socially isolated patients): 1 Seatbelt use: always Drive intox or ride w/intox ambulance driver: No Working smoke detector in home: Yes Fire extinguisher in home: Yes Carbon monox detector in home: No Do you feel safe at home: Yes Do you feel safe in your relationship?: Yes Meds Allergies and Home Medications Allergies Allergy/AdvReac Type Severity Reaction Status Date / Time Environmental Allergy Mild Rhinitis Uncoded 01/17/22 14:03 Home Medications Medication Instructions Recorded Confirmed Type acetaminophen 500 mg tablet 1,000 mg PO PRN 01/12/18 03/04/22 History ibuprofen 600 mg tablet 600 mg PO PRN 01/12/18 01/28/22 History Varicella-Zoster Ge/As01b/Pf 50 mcg IM ONCE ##1 03/26/18 02/16/19 Clinic [Shingrix Vial Kit] lidocaine 1.8 % topical patch 1 patch topical DAILY PRN 11/29/21 03/04/22 History loratadine 10 mg tablet 10 mg PO DAILY 01/17/22 03/04/22 History bisacodyl 5 mg tablet,delayed 5 mg PO ONCE colonscopy bowel prep 01/18/22 01/28/22 Rx release (Dulcolax (bisacodyl)) #4 tabs polyethylene glycol 3350 17 238 g PO ONCE colonoscopy prep 01/18/22 01/28/22 Rx gram/dose oral powder #238 grams lisinopril 10 mg tablet 10 mg PO HS 03/04/22 03/04/22 History Exam Narrative Exam Narrative: PHYSICAL EXAM GENERAL APPEARANCE: Alert, healthy appearance, oriented, in no acute distress SKIN: No rashes.? No breakdown HYDRATION: Well hydrated HEAD, EYES, EARS, NECK, THROAT: Head is normocephalic, pupils equal, round, reactive to light and accommodation, ocular movement intact, sclera clear and no jaundice. ?Dentition intact. No sore throat.? No jaw pain. No thrush NECK: Supple, Trachea midline. No JVD. LUNGS: normal respiration/nl chest excursion. ?Clear to auscultation B/l no R/R/W ?HEART: Regular rate and rhythm, EXTREMITY: No edema or cyanosis? no leg pain, redness, swelling.? No IV infiltration ABDOMEN: non tender to palpation, no masses or distention, no hernias. Normal bowel sounds NEURO: no focal neuro deficits.
--- NOTE | 2022-03-04 18:51 | W.COLOREPORT ---
Colonoscopy Report Date of procedure: 03/05/22 Pre-op diagnosis general: Rectal bleeding and anemia Post-op diagnosis procedure note: other (Severe randhawa diverticula/colon polyp/prolapsing internal hemorrhoid and mucosal prolapse) Surgeon: Leatha Springer Anesthesia Type: General:No Airway Estimated blood loss (mL): 1 Complications: None Disposition: same day Prep: Miralax/Dulcolax Retraction Time: 10 Procedure Description: After informed consent was obtained the patient was taken to the procedure room and placed in a left decubitous position. Monitors were applied and a time out was done. The patients name, date of , procedure, allergies to medications and metal in their body was reviewed. The patient was then sedated. Once sedated and comfortable a rectal exam was done. External exam was normal. Internal exam revealed a normal sphincter tone and no palpable masses. The scope was then introduced and retrofelexed. Grade III prolapsing internal hemorrhoids/mucosal prolapse (very minor) were identified. The scope was then advanced to the cecum without difficulty. The TI and appendiceal orifice were identified. The prep was BB PS 2 in all segments for a total of 6. The colon was lavaged with a liter of saline.. The scope was then slowly retracted over 10 minutes back into the rectum. He has 2 small flat 5 mm polyps at 90 cm. These are removed with a cold biopsy forcep. All specimen is retrieved and no bleeding is noted. He has severe diverticula within the sigmoid colon. The diverticula do continue all the way over to the cecum. There is no signs of active bleeding or infection at this time. He does have prolapsing internal hemorrhoid and a slight amount of mucosal prolapse as well. A biopsy is taken of this area and to ensure that there is no malignant process. The scope was removed and the patient was woken up and taken back to Same day surgery in stable condition. The patient tolerated the procedure well and there were no immediate complications. Follow up: The patient should not have any further colonoscopies, unless they develop changes in bowel habits or other new gastrointestinal complaints. He does have severe diverticular disease, and as such is at high risk for perforation and I would not recommend any further routine screenings.
--- NOTE | 2022-03-04 18:52 | W.PM.DSUDISC ---
Discharge Plan Disposition Patient Disposition: HOME Condition: Good Discharge Details Reason For Visit: Colon scope Attending Provider: Leatha Springer Primary Care Provider: Anne-Marie Palencia Home Meds and New Rx's Prescriptions: Continued lidocaine 1.8 % adhesive patch,medicated 1 patch topical DAILY PRN Rx Instructions: leave on most painful area for up to 12 hrs acetaminophen 500 MG tablet 1,000 mg PO PRN ibuprofen [IBU] 600 MG tablet 600 mg PO PRN Varicella-Zoster Ge/As01b/Pf [Shingrix Vial Kit] 50 MCG INJ 50 mcg IM ONCE Qty: 1 1RF loratadine 10 mg tablet 10 mg PO DAILY lisinopril 10 mg tablet 10 mg PO HS Discontinued polyethylene glycol 3350 17 gram/dose powder 238 g PO ONCE Qty: 238 0RF Rx Instructions: take per colonoscopy instructions bisacodyl [Dulcolax (bisacodyl)] 5 mg tablet,delayed release (DR/EC) 5 mg PO ONCE Qty: 4 0RF Rx Instructions: take per colonoscopy instructions Discharge Instructions Additional Instructions: DSU Colonoscopy Post-Op Instructions Instructions for Everyone who is given Anesthesia: For your safety, please do the following for the next twenty-four (24) hours: *Do Not operate a motor vehicle (car, truck, motorcycle, etc.) *Do Not drink alcoholic beverages or use any recreational drugs for the first 24 hours or while taking pain medications. The medications in your body may have a reaction that can be dangerous. *Do Not make any important decisions or sign any important papers. Findings: -Severe diverticular Dx/GradeIII /prolaspsing hemorrhoid and mucosal prolapse Follow up: -consider hemorrhoid banding. -Start fiber supplement daily 1. No lifting over 20 pounds or strenuous activity for the first 24 hours after your procedure. After 24 hours there are no restrictions on your activity but you may feel fatigued for a few days. 2. After you arrive home you may have a light meal and return to your normal diet as you can tolerate it without feeling sick to your stomach. 3. You may have a bloated, gaseous feeling in your belly (abdomen) after a colonoscopy. Passing gas and belching will help. Walking or lying down on your left side with your knees flexed may relieve the discomfort. Call the office at [phone] (Office) or [phone] ([facility]) right away if you notice any of the following: a.Vomiting of blood or ?coffee ground stools?. b.Rectal bleeding 1Tbsp, blood clots or continuous bleeding. c.Severe belly (abdominal) pain. d.A hard distended belly (abdomen) and an inability to pass gas. 4. Please don?t expect to have a normal BM (bowel movement) for 2-3 days after your procedure. 5. If there are questions regarding the findings of your procedure, please contact your doctor 6. If you are unable to contact your doctor with a problem, contact the hospital at [phone]. 7. Continue all your regular medications unless directed otherwise. I understand the above instructions and have no questions. Signature of Patient or Adult Escort Name of Responsible Adult Escort Signature of Nurse Date/Time Activity:: See above Diet:: See above Discharge Orders Discharge Orders: Discharge Order (Routine); Ordered 03/04/22 Ordered By: Leatha Springer DS: Diagnosis Discharge Diagnosis (1) Oujjojs-Fzkjw-Didvl disease type 1: Status: Acute (2) SARS-CoV-2 positive: Status: Acute (3) Obstructive sleep apnea (adult) (pediatric): Status: Acute (4) Essential hypertension: Status: Acute (5) Rectal bleeding: Status: Acute (6) Acute on chronic blood loss anemia: Status: Acute
[2022-03-05 11:49] VITALS: BP 154/83; PULSE 54; RESP 17; TEMP 36.7; O2SAT 96
[2022-03-05] MEDS: Lactated Ringers 1,000 ML 80 ML IV (12:16)
[2022-03-05 13:30] LABS: Abs Immature Grans 0.01 10^3/uL (0.0-0.06); Absolute Basophil Count 0.04 10^3/uL (0.0-0.2); Absolute Lymphocyte Count 1.54 10^3/uL (1.2-3.4); Absolute Monocyte Count 0.67 10^3/uL (0.1-0.8); Absolute Neutrophil Count 3.45 10^3/uL (1.2-6.7); Basophils % 0.7; Eosinophils % 3.4; HCT 38.6 % (40.0-50.0); HGB 12.9 g/dL (13.5-17.5); Immature Grans % 0.2; Lymphocytes % 26.1; MCH 31.5 pg (27.0-33.0); MCHC 33.4 % (32.0-36.0); MCV 94 fL (80-95); MPV 9.7 fL (8.0-11.0); Monocytes % 11.3; Neutrophils % 58.3; Platelet Count 317 10^3/uL (130-400); RBC 4.09 10^6/uL (4.36-5.78); RDW-SD 45.1 fL; WBC 5.91 10^3/uL (4.4-10.8)
--- NOTE | 2022-03-05 14:08 | ANES.PREOP_ITS ---
General Info Date of Service Date Performed: 03/05/22 Height: 5 ft 8 in Weight: 68.1 kg Body Mass Index (BMI): 22.8 Surgical Procedure: Operation Date: 03/05/22 13:50 Proposed Procedure Side Surgeon p Alec Springer DO Meds Allergies and Home Medications Allergies Allergy/AdvReac Type Severity Reaction Status Date / Time Environmental Allergy Mild Rhinitis Uncoded 03/05/22 12:00 Home Medication Medication Instructions Recorded acetaminophen 500 mg tablet 1,000 mg PO PRN 01/12/18 ibuprofen 600 mg tablet (IBU) 600 mg PO PRN 01/12/18 lidocaine 1.8 % topical patch 1 patch topical DAILY PRN 11/29/21 loratadine 10 mg tablet 10 mg PO DAILY 01/17/22 bisacodyl 5 mg tablet,delayed 5 mg PO ONCE colonscopy bowel prep 01/18/22 release (Dulcolax (bisacodyl)) #4 tabs polyethylene glycol 3350 17 238 g PO ONCE colonoscopy prep 01/18/22 gram/dose oral powder #238 grams lisinopril 10 mg tablet 10 mg PO HS 03/04/22 Current Visit Medications: Current Medications Generic Name Dose Route Start Last Admin Trade Name Freq PRN Reason Stop Dose Admin Hyoscyamine Sulfate 0.125 mg 03/04/22 10:32 Hyoscyamine 0.125 Mg Sl/Oral/Chew SL DIRECTED PRN Ringer's Solution 1,000 mls @ 80 mls/hr 03/05/22 06:00 03/05/22 12:16 IV 04/03/22 23:59 80 mls/hr INFUSION VIDA Administration Iron Sucrose 200 mg/ Sodium 110 mls @ 440 mls/hr 03/05/22 11:30 Chloride IVPB 03/05/22 16:00 TODAY@1130 [facility] IV Miscellaneous Supplies 1 each 03/05/22 06:00 Iv Access IV 04/03/22 23:59 DIRECTED [facility] Ondansetron HCl 4 mg 03/04/22 10:32 Ondansetron 4 Mg/2 Ml Vial IVP Q4H PRN PRN Nausea / Vomiting Sodium Chloride 0 ml 03/05/22 06:00 Normal Saline Flush 10 Ml Syr IV 04/03/22 23:59 PRN PRN Sodium Chloride 0 ml 03/05/22 06:00 Normal Saline 10 Ml Vial IJ 04/03/22 23:59 DIRECTED PRN Sterile Water 0 ml 03/05/22 06:00 Water,Injection,Sterile 10 Ml Vial IJ 04/03/22 23:59 DIRECTED PRN PFSH Active Problems Active Problems: Problem Status Onset Code Acute on chronic blood loss anemia D62 Rectal bleeding K62.5 Arthritis of spine 02/02/14 M47.819 Zadexfy-Yidug-Wkifn disease type 1 02/02/14 G60.0 DJD (degenerative joint disease), cervical 10/08/17 M47.812 Elevated PSA 12/29/17 R97.20 Erectile dysfunction of organic origin 03/14/17 N52.9 Essential hypertension 06/19/16 I10 Hyperlipidemia 03/07/14 E78.5 Low back pain 02/02/14 M54.5 S/P carpal tunnel release 02/03/18 Z98.890 Sacral radiculopathy 02/02/14 M54.18 Thyroid nodule 10/30/17 E04.1 Bilateral foot pain M79.671, M79.672 Witnessed apneic spells R06.81 SOB (shortness of breath) R06.02 Fatigue R53.83 Impacted cerumen of right ear H61.21 Sensorineural hearing loss (SNHL) of both ears H90.3 Collapse of left external ear canal H61.302 Obstructive sleep apnea (adult) (pediatric) G47.33 Insomnia, unspecified G47.00 Left thyroid nodule E04.1 Impacted cerumen, bilateral H61.23 Conductive hearing loss, external ear H90.2 Balance disorder R26.89 Gait disorder R26.9 SARS-CoV-2 positive ~01/27/22 U07.1 Surgical History Surgical History H/O colonoscopy H/O foot surgery 1960's H/O vasectomy History of carpal tunnel surgery of right wrist History of meniscectomy of left knee Tobacco Smoking/Tobacco Use Status: Former Tobacco Use Alcohol Alcohol Intake: current Alcohol intake frequency: 3 or more drinks per day Alcohol type: wine Details: 3 good glasses of wine a day. Substance Use Substance use: Never Substance use type: does not use Vital Signs and Lab Results Vital Signs Most Recent Vital Signs in EMR: Most Recent Vital Signs Temp Pulse Resp BP Pulse Ox 36.7 C 54 L 17 154/83 H 96 03/05/22 11:49 03/05/22 11:49 03/05/22 11:49 03/05/22 11:49 03/05/22 11:49 Lab Results Result Diagrams: 03/05/22 13:15 Blood Type / Crossmatch: No Data to Display Complete Blood Count: White Blood Count 5.91 10^3/uL (4.4-10.8) 03/05/22 13:15 Red Blood Count 4.09 10^6/uL (4.36-5.78) L 03/05/22 13:15 Hemoglobin 12.9 g/dL (13.5-17.5) L 03/05/22 13:15 Hematocrit 38.6 % (40.0-50.0) L 03/05/22 13:15 Platelet Count 317 10^3/uL (130-400) 03/05/22 13:15 Complete Metabolic Panel: No Data to Display Liver Function Panel: No Data to Display Coagulation Panel: No Data to Display Cardiac Panel: No Data to Display Arterial Blood Gas: No Data to Display Venous Blood Gas: No Data to Display Pancreas Panel: No Data to Display Thyroid Panel: No Data to Display Infectious Disease: Coronavirus (COVID-19)(PCR) Negative (Negative) 03/04/22 08:00 Coronavirus 2019 Source Nasal/Nares 03/04/22 08:00 Blood Cultures: No Data to Display Toxicology Panel: No Data to Display Anesthesia Assessment and Plan Anesthesia History Personal History: No History of Anesthesia Complications Family History: No Family History of Anesthesia Complications Exercise Tolerance Exercise Tolerance: Metabolic Equivalents>4 Cardiac & Pulmonary Exam Cardiac Exam: Normal S1/S2 Heart Sounds Pulmonary Exam: Clear Bilateral Breath Sounds Implantable Cardiac Device Does patient have a Pacemaker or an ICD?: No Airway Exam Known Difficult Airway: No Mallampati Class: 2 Mouth Opening: Normal (> 3cm) Thyromental Distance: Greater than 3 cm Facial Hair: Full Morales Neck Range of Motion: Full ROM Neck Circumference: Normal Teeth Condition: Normal Dentition ASA Classification ASA Score: ASA 2 Emergency Case?: No NPO Status NPO Status: NPO Clears >2 hours, Solids >8 hours Anesthesia Plan Resuscitation Status: Full Code Anesthesia Technique: General Anesthesia Airway Planned: Natural Airway Monitors Used: Standard Monitors
[2022-03-05 14:11] VITALS: BMI 22.8
--- NOTE | 2022-03-05 14:40 | BOWEL_PTH ---
PATIENT: Sincere Abernathy LOC: [facility] U#:[id number] AGE/SX: 71/M ROOM: RE03/05/[address]: Leatha Springer : 1950 BED: DIS: 03/05/2022 SPEC #: [id number] RECD: 03/05/22 16:52 STATUS: ASHLEY REAdarsh #: [id number] RAQUEL: 03/05/22 14:[address]: Leatha Springer DEPT: Surgical Specimen RECD BY: Eugenia Villa ENTERED: 03/05/22 16:53 SP TYPE: Bowel OTHR DR: Anne-Marie Palencia APRN Tissues: 1 - BIOPSY BOWEL 2 - BIOPSY BOWEL Procedures: GROSS AND MICRO LEVEL 4 Comments: [id number]
[2022-03-05 14:50] VITALS: BP 129/77; PULSE 60; RESP 17; TEMP 36.6; O2SAT 98
--- NOTE | 2022-03-05 15:18 | W.ANESPOSTOP ---
Postoperative Evaluation Date, Time and Location Date Performed: 03/05/22 Time Performed: 15:18 Patient Location: Day Surgery Unit Vital Signs Most Recent Imported Vital Signs: Most Recent Vital Signs Temp Pulse Resp BP Pulse Ox 36.6 C 60 17 129/77 98 03/05/22 14:50 03/05/22 14:50 03/05/22 14:50 03/05/22 14:50 03/05/22 14:50 Pain Score Most Recent Pain Score: Most Recent Pain Score Pain Level 0 03/05/22 11:49 Assessment Mental Status: Awake (Alert & Oriented to Patient Baseline) Airway and Respiratory Function: Patent airway with normal (patient baseline) respiratory exam Cardiovascular Function: Hemodynamically Stable Hydration Status: Adequately Hydrated Nausea & Vomiting: No Nausea or Vomiting Pain: Pt. Denies Any Pain Peripheral Nerve Block: Patient did not receive a nerve block
[2022-03-05 15:20] VITALS: BP 154/82; PULSE 60; RESP 18; TEMP 36.5; O2SAT 100
[2022-03-05] MEDS: Normal Saline Flush 10 ML SYR IV (15:45)
[2022-03-05] MEDS: IRON SUCROSE COMPLEX 200 MG in Normal Saline 100 ML 440 MG IVPB (15:45)
[2022-03-05 15:57] VITALS: BP 153/83; PULSE 51; RESP 18; TEMP 36.5; O2SAT 100
== END 2022-03-05 14:26 | disposition home or self-care (01) ==
PROVIDERS: PCP Nurse Practitioner; Visit Provider Surgery
PROC: 0DJD8ZZ Inspection of Lower Intestinal Tract, Via Natural or Artificial Opening Endoscopic (ICD-10-PCS; CPT 45378; principal; 2022-03-05 13:45)
DX: K57.31 Diverticulosis of large intestine without perforation or abscess with bleeding (principal); D62 Acute posthemorrhagic anemia; I10 Essential (primary) hypertension; E78.5 Hyperlipidemia, unspecified; K64.2 Third degree hemorrhoids; K63.5 Polyp of colon; K62.89 Other specified diseases of anus and rectum
CPT/HCPCS: 45380; 88305; 96365; 85025; J1756

== ENCOUNTER → 2022-03-15 08:04 | Outpatient (BNVA) | payer MEDICARE, SELFPAY | PROVIDERS: PCP Nurse Practitioner; Referring Provider Nurse Practitioner; Visit Provider Urology | DX: R39.89 Other symptoms and signs involving the genitourinary system (principal); R97.20 Elevated prostate specific antigen [PSA] | CPT/HCPCS: 99214 ==

== ENCOUNTER 2022-09-10 03:36 | Outpatient (CLI) | payer MEDICARE, SELFPAY ==
[2022-09-10 22:53] LABS: PSA, Diagnostic 5.6 ng/mL (<=6.5)
== END 2022-09-10 03:37 | disposition home or self-care (01) ==
LOC: LBO 03:36
PROVIDERS: PCP Nurse Practitioner; Visit Provider Urology
DX: R97.20 Elevated prostate specific antigen [PSA] (principal)
CPT/HCPCS: 36415; 84153

== ENCOUNTER → 2022-09-17 07:58 | Outpatient (BNVA) | payer MEDICARE, SELFPAY | PROVIDERS: PCP Nurse Practitioner; Referring Provider Nurse Practitioner; Visit Provider Urology | DX: R97.20 Elevated prostate specific antigen [PSA] (principal) | CPT/HCPCS: 99212 ==

== ENCOUNTER 2022-09-26 13:45 | Outpatient (CLI) | payer MEDICARE, SELFPAY ==
--- NOTE | 2022-09-26 | DI.RAD_ITS ---
Exam(s) XR FOOT RT COMPLETE EXAM: XR FOOT RT COMPLETE CLINICAL HISTORY: RT FOOT PAIN WITH WT BEARING, M79.671,FELT POP,DEFORMITY FROM CLUB FOOT [facility]. TECHNIQUE: 2D digital imaging was performed of the right foot. Three images were obtained. AP, obl ique and lateral views were obtained. COMPARISON: CR FOOT_3 OR MORE VIEWS -RIGHT from 09/21/2018 FINDINGS: BONES: No acute fracture is present. No bony destructive lesion is seen. Postsurgical changes are see n in the foot. JOINTS: No dislocation present. Marked degenerative changes are seen in the hindfoot. There are agai n seen hammertoe deformities. SOFT TISSUE: Normal. IMPRESSION: No acute fracture or dislocation. DATA REPOSITORY: RADIATION DOSE DELIVERED:
== END 2022-09-26 14:05 ==
LOC: DI 13:46
PROVIDERS: PCP Nurse Practitioner; Visit Provider Physician Assistant Medical
DX: M79.671 Pain in right foot (principal); M20.41 Other hammer toe(s) (acquired), right foot; M19.071 Primary osteoarthritis, right ankle and foot
CPT/HCPCS: 73630

== ENCOUNTER 2022-10-01 14:03 | Emergency (ER) | payer MEDICARE, SELFPAY ==
[2022-10-01 14:11] VITALS: BP 175/81; PULSE 61; RESP 16; TEMP 36.5; O2SAT 98
--- NOTE | 2022-10-01 14:45 | DI.CT_ITS ---
Exam(s) CT LOWER EXTREMITY RT WO EXAM: CT LOWER EXTREMITY RT WO CLINICAL HISTORY: right lateral ankle/foot pain, r/o fx. TECHNIQUE: Imaging Protocol: Axial computed tomography images with coronal and sagittal reformatted images were created and reviewed. CONTRAST MATERIAL: Intravenous: Omnipaque 350 Contrast volume:structured data in ml Contrast route:I V - Oral: yes / no COMPARISON: CR XR FOOT RT COMPLETE from 09/26/2022 FINDINGS: OSSEOUS: There are advanced degenerative changes in tibiotalar-ankle joint. There is complete fusion across t he subtalar joint between the talus and calcaneus and there is also fusion across the calcaneocuboid. There is also fusion across the talonavicular joint. Also fusion between the anterior process of t he calcaneus and the navicular. There degenerative changes and dorsal osteophytes at the articulation between the navicular and media l cuneiform. There is no fusion at the tarsometatarsal joints. No fractures evident. Hammertoe def ormities are seen in all toes. At the level of the lateral malleolus there is a triangular fragment which is probably a nonacute avu lsion injury. There are no obvious acute fractures evident. SOFT TISSUES: There is a prominent focal calcification in the plantar fascia located 1.2 cm proximal to the inferio r calcaneus. This calcification measures 2 cm length by 0.5 cm. Also some calcification noted at th e insertional aspect of the Achilles tendon. There does not appear to be a high-grade tear of the Ac hilles tendon. There appears to be tenosynovitis of the flexor hallucis longus tendon at, distal com mon and proximal to the sustentaculum talus level. IMPRESSION: 1. No obvious acute fractures. 2. Multilevel fusion as described above (no hardware evident). 3. Prominent calcification noted in the plantar fascia. 4. Lateral malleolus finding as described above which is doubtful for acute fracture. 5. Soft tissue findings as above. Called by myself to ER physician. RADIATION DOSE DELIVERED: 291.14mGy.cm Total DLP DATA REPOSITORY: All CT scans at this facility are submitted to the National Radiology Data Registry (NRDR) Dose Index Registry (DIR) with the [employer] (ACR). RADIATION OPTIMIZATION: All CT scans at this facility use at least one of these dose optimization te chniques: automated exposure control; mA and/or kV adjustment per patient size (includes targeted exa ms where dose is matched to clinical indication); or iterative reconstruction.
--- NOTE | 2022-10-01 15:44 | W.ED.GENAD ---
Discharge Plan Disposition Patient Disposition: Home Condition: Good Discharge Details Chief Complaint: Orthopedic Clinical Impression: Pain in right foot Primary Care Provider: Anne-Marie Palencia ED Provider: Cleve Bailey Home Meds and New Rx's Prescriptions: No Action lidocaine 1.8 % adhesive patch,medicated 1 patch topical DAILY PRN Rx Instructions: leave on most painful area for up to 12 hrs acetaminophen 500 MG tablet 1,000 mg PO PRN Varicella-Zoster Ge/As01b/Pf [Shingrix Vial Kit] 50 MCG INJ 50 mcg IM ONCE Qty: 1 1RF loratadine 10 mg tablet 10 mg PO DAILY lisinopril 10 mg tablet 10 mg PO HS Discharge Instructions Instructions: Arthralgia (ED) Additional Instructions: At this time the CAT scan shows no new fractures. I reviewed the images with the radiologist and Dr. Ross. Dr. Ross would like to see you at your scheduled appointment. Please continue to use the walking boot that you have, as well as the crutches. Please apply [id number] Voltaren gel to the area to help reduce any irritation or inflammation. If you notice any worsening of your symptoms, or any new symptoms such as vomiting, diarrhea, fever, chills, shortness of breath, chest pain, numbness, weakness, or fainting , please return immediately to the emergency department for reevaluation. Please follow up with your primary care provider as soon as possible for reassessment and reevaluation. As always, it was a pleasure participating in your medical care today. Referrals: Michael Ross MD [ [facility] STAFF PHYSICIAN] - Anne-Marie Palencia NP [Primary Care Provider] - Medical Decision Making 72-year-old male with a past medical history of muscular dystrophy, Aupzqpb-Aahbr-Vmwfp disease, clubfoot, who presents today for right foot pain. Patient states that he has chronic pain in his right foot, he has had previous surgeries, however 1 week ago while walking he heard a pop. After that he has had a slow steady increase in pain in his right lateral ankle and foot. It is worse with ambulation. He went to the urgent care where an x-ray was performed which demonstrated no significant acute process. And he has been attempting to perform nonweightbearing with crutches since then. Unfortunately the pain is continued. He presents today for reassessment. He does have an appointment with Dr. Ross in the next 2 to 3 weeks. He denies any other new falls or trauma. He denies any new fever or chills. No other complaints at this time. Physical exam demonstrates chronically atypical foot. There is some minimal swelling on the lateral aspect on the right foot. Diminished sensation over the right lateral aspect. Capillary refill brisk. No asymmetric warmth. I suspect that the patient's notably chronic atypical osseous foot structure had a mild ligamentous injury when he heard the initial pop, and since then has had a gradual worsening of the movement and disposition of his bony structures. Initial x-ray was read as negative. We will get a CT scan to rule out any acute component, however I do worry that there is not any perfect solution for his symptoms at this time. We will reach out to Dr. Ross to see if he has any other additional recommendations at this time. We will monitor closely and reassess. 4:[address] scan shows no evidence of acute process, images were reviewed with radiology and Dr. Ross. Patient is stable. Will recommend continued walking boot and crutches. I will also recommend topical Voltaren gel. Recommend close follow-up with Dr. Ross. I have extensively reviewed the treatment plan and discharge instructions with the patient. I have addressed all patient concerns at this time. The patient was made aware of what symptoms to monitor for that would warrant a return to the emergency department. Discussed the plan with the patient, they demonstrate verbal understanding and agreement with our assessment and plan at this time. The documentation in this chart was dictated using [employer] dictation software. Please excuse any dictation errors. FINDINGS: OSSEOUS: There are advanced degenerative changes in tibiotalar-ankle joint. There is complete fusion across the subtalar joint between the talus and calcaneus and there is also fusion across the calcaneocuboid. There is also fusion across the talonavicular joint. Also fusion between the anterior process of the calcaneus and the navicular. There degenerative changes and dorsal osteophytes at the articulation between the navicular and medial cuneiform. There is no fusion at the tarsometatarsal joints. No fractures evident. Hammertoe deformities are seen in all toes. At the level of the lateral malleolus there is a triangular fragment which is probably a nonacute avulsion injury. There are no obvious acute fractures evident. SOFT TISSUES: There is a prominent focal calcification in the plantar fascia located 1.2 cm proximal to the inferior calcaneus. This calcification measures 2 cm length by 0.5 cm. Also some calcification noted at the insertional aspect of the Achilles tendon. There does not appear to be a high-grade tear of the Achilles tendon. There appears to be tenosynovitis of the flexor hallucis longus tendon at, distal common and proximal to the sustentaculum talus level. IMPRESSION: 1. No obvious acute fractures. 2. Multilevel fusion as described above (no hardware evident). 3. Prominent calcification noted in the plantar fascia. 4. Lateral malleolus finding as described above which is doubtful for acute fracture. 5. Soft tissue findings as above. HPI General Date/Time Provider Initiated Documentation: 10/01/22 14:41. HPI Narrative: 72-year-old male with a past medical history of muscular dystrophy, Uqlmkxm-Xiupg-Ifxun disease, clubfoot, who presents today for right foot pain. Patient states that he has chronic pain in his right foot, he has had previous surgeries, however 1 week ago while walking he heard a pop. After that he has had a slow steady increase in pain in his right lateral ankle and foot. It is worse with ambulation. He went to the urgent care where an x-ray was performed which demonstrated no significant acute process. And he has been attempting to perform nonweightbearing with crutches since then. Unfortunately the pain is continued. He presents today for reassessment. He does have an appointment with Dr. Ross in the next 2 to 3 weeks. He denies any other new falls or trauma. He denies any new fever or chills. No other complaints at this time. Related Data Home Medications Medication Instructions Recorded Confirmed acetaminophen 500 mg tablet 1,000 mg PO PRN 01/12/18 10/01/22 lidocaine 1.8 % topical patch 1 patch topical DAILY PRN 11/29/21 10/01/22 loratadine 10 mg tablet 10 mg PO DAILY 01/17/22 10/01/22 lisinopril 10 mg tablet 10 mg PO HS 03/04/22 10/01/22 Allergies Allergy/AdvReac Type Severity Reaction Status Date / Time Environmental Allergy Mild Rhinitis Uncoded 10/01/22 14:15 General Stated Complaint: Orthopedic ANDRZEJ: 4 Review of Systems All systems reviewed & are unremarkable except as noted in HPI and below PFSH All Active Problems (Updated 10/01/22 @ 16:36 by Cleve Bailey DO) Pain in right foot (Acute) Acute on chronic blood loss anemia (Acute) Rectal bleeding (Acute) Arthritis of spine (Acute 02/02/14) Ibmupoe-Hukfc-Lztho disease type 1 (Acute 02/02/14) DJD (degenerative joint disease), cervical (Acute 10/08/17) 10/07/17 MRI central spinal stenosis. No cord impingment Elevated PSA (Acute 12/29/17) Erectile dysfunction of organic origin (Acute 03/14/17) Essential hypertension (Acute 06/19/16) Hyperlipidemia (Acute 03/07/14) PCEq risk 11.2%; LDL baseline 134; declines statin Low back pain (Acute 02/02/14) S/P carpal tunnel release (Acute 02/03/18) Sacral radiculopathy (Acute 02/02/14) Thyroid nodule (Acute 10/30/17) ENT 10/30/17 recheck in 6 months RH 04/30/18 thyroid US-no change in L sided nodule per ov note- 11/25/19 follow up in 1 yr. cgc Bilateral foot pain (Acute) reported 09/21/18-[facility]. Dr. Brando Franco. Witnessed apneic spells (Acute) SOB (shortness of breath) (Acute) 11/27/19 Sleep Study ( [facility]) Fatigue (Acute) Impacted cerumen of right ear (Acute) Sensorineural hearing loss (SNHL) of both ears (Acute) Collapse of left external ear canal (Acute) Obstructive sleep apnea (adult) (pediatric) (Acute) Insomnia, unspecified (Acute) Left thyroid nodule (Acute) Impacted cerumen, bilateral (Acute) Conductive hearing loss, external ear (Acute) Balance disorder (Acute) Gait disorder (Acute) SARS-CoV-2 positive (Acute ~01/27/22) Surgical History H/O colonoscopy H/O foot surgery 1960's H/O vasectomy History of carpal tunnel surgery of right wrist History of meniscectomy of left knee Family History Other Cancer Muscular dystrophy Social History Smoking/Tobacco Use Status: Former Tobacco Use Quit Date: 04/14/85 Smoking risk assessment performed?: Yes Alcohol Intake: current Alcohol Intake frequency: 3 or more drinks per day Alcohol type: wine Details: 3 good glasses of wine a day. Drug use: Occasionally Substance use type: marijuana Household members: spouse Housing: house Number of Children: 1 Communication Needs: Hard of Hearing and Corrective Lenses Pets and animals: Yes (1 cat) Pets and animals: cat(s) What is your relationship status?: Panel score (0-1 are the most socially isolated patients): 1 Seatbelt use: always Drive intox or ride w/intox over the road driver: No Working smoke detector in home: Yes Fire extinguisher in home: Yes Carbon monox detector in home: No Do you feel safe at home: Yes Do you feel safe in your relationship?: Yes Exam Narrative Exam Narrative: 1.Const: Well-nourished, Well-developed, appearing stated age 2.Eyes: PERRL, no conjunctival injection, and symmetrical lids. 3.ENT: Atraumatic external nose and ears. Moist MM. Neck: Symmetric, trachea midline, No thyromegaly. 4.CVS: +S1/S2, No murmurs or gallops. Peripheral pulses 2+ and equal in all extremities. Brisk capillary refill in all extremities. 5.RESP: Unlabored respiratory effort. Clear to auscultation bilaterally. No wheezes rales or rhonchi 6.GI: Soft, Nontender/Nondistended, No hepatosplenomegaly. No guarding or rebound. 7.MSK: Patient's right foot demonstrates chronic clubfoot, previous surgical scar on the right. Mild swelling of the lateral aspect by the lateral malleolus. No asymmetric redness or warmth of significance. Sensation intact for the plantar aspect of the foot, however sensation notably diminished on the lateral third of the foot for the superficial peroneal nerve distribution 8.Skin: Warm, Dry. No rashes or lesions. 9.Neuro: coastal and estuary specialist II-XII grossly intact. Sensation grossly intact aside for the distribution of the superficial peroneal nerve by the right lateral ankle and right lateral foot 10.Psych: (AAO) x3. Appropriate mood and affect Course Vital Signs Vital signs: Vital Signs Temperature 36.5 C 10/01/22 14:11 Pulse 61 10/01/22 14:11 Respiratory Rate 16 10/01/22 14:11 Blood Pressure 175/81 H 10/01/22 14:11 Pulse Oximetry 98 10/01/22 14:11 Temperature 36.5 C 10/01/22 14:11 Temperature Source Temporal Artery Scan 10/01/22 14:11 Pulse 61 10/01/22 14:11 Respiratory Rate 16 10/01/22 14:11 Respiratory Effort Non-Labored 10/01/22 14:16 Blood Pressure 175/81 H 10/01/22 14:11 Blood Pressure Position Sitting 10/01/22 14:11 Pulse Oximetry 98 10/01/22 14:11 Oxygen Delivery Method Room Air 10/01/22 14:11 Oxygen Flow Rate 0 10/01/22 14:11 PAWSS Have you Been Recently Intoxicated or Drunk Within the Last 30 days?: No Have you Ever Experienced Previous Episodes of Alcohol Withdrawal?: No Have you ever Experienced Withdrawal Seizures?: No Have you ever Experienced Delirium Tremens(DT)s?: No Have you ever undergone Alcohol Rehabilitation Treatment (i.e, inpt ot outpatient treatment programs)?: No Have you ever Experienced Blackouts?: No Have you ever Combined Alcohol with other Downers within the last 90 days?: No Have you ever Combined Alcohol with any other Substance of Abuse during the last 90 days?: No Positive Blood Alcohol level on Presentation? [PCS.BAL]: No Evidence of Increased Autonomic Activity (i.e. HR>120, tremor, sweating, agitation, nausea)?: No Result: 0
[2022-10-01 16:52] VITALS: BP 155/87; PULSE 50; RESP 18; O2SAT 98
== END 2022-10-01 16:36 | disposition home or self-care (01) ==
PROVIDERS: Emergency Provider Student in an Organized Health Care Education/Training Program; PCP Nurse Practitioner
DX: M79.671 Pain in right foot (principal); G89.29 Other chronic pain; M79.89 Other specified soft tissue disorders
CPT/HCPCS: 99284; 73700; 99282

== ENCOUNTER → 2022-10-14 09:02 | Outpatient (BNVA) | payer MEDICARE, SELFPAY | PROVIDERS: PCP Nurse Practitioner; Referring Provider Nurse Practitioner; Visit Provider Student in an Organized Health Care Education/Training Program | DX: M21.6X1 Other acquired deformities of right foot (principal); M21.6X2 Other acquired deformities of left foot; M19.071 Primary osteoarthritis, right ankle and foot; M19.072 Primary osteoarthritis, left ankle and foot; G60.0 Hereditary motor and sensory neuropathy | CPT/HCPCS: 99214 ==

== ENCOUNTER 2023-03-11 01:54 | Outpatient (CLI) | payer MEDICARE, SELFPAY ==
[2023-03-11 07:21] LABS: Abs Immature Grans 0.02 10^3/uL (0.0-0.06); Absolute Basophil Count 0.06 10^3/uL (0.0-0.2); Absolute Eosinophil Count 0.53 10^3/uL (0.0-0.7); Absolute Lymphocyte Count 3.45 10^3/uL (1.2-3.4); Absolute Monocyte Count 0.79 10^3/uL (0.1-0.8); Absolute Neutrophil Count 3.15 10^3/uL (1.2-6.7); Basophils % 0.8; Eosinophils % 6.6; HGB 14.6 g/dL (13.5-17.5); Immature Grans % 0.3; Lymphocytes % 43.1; MCH 32.2 pg (27.0-33.0); MCV 95 fL (80-95); MPV 9.2 fL (8.0-11.0); Monocytes % 9.9; Neutrophils % 39.3; Platelet Count 331 10^3/uL (130-400); RBC 4.53 10^6/uL (4.36-5.78); RDW 13.3 % (11.8-14.1); RDW-SD 46.9 fL
[2023-03-11 08:05] LABS: ALT 28 U/L (16-63); AST 19 U/L (15-37); Albumin 3.6 g/dL (3.4-5.0); Alkaline Phosphatase 68 U/L (46-116); Anion Gap 8.3 mmol/L (3-11); BUN 17 mg/dL (7-18); Bilirubin, Total 0.6 mg/dL (0.2-1.0); CO2 27.7 mmol/L (21.0-32.0); CREATININE 0.9 mg/dL (0.70-1.30); Calcium 8.9 mg/dL (8.5-10.1); Calculated LDL 121 mg/dL (<100); Chloride 104 mmol/L (98-107); Cholesterol 200 mg/dL (<200); Estimated GFR 91.31 (mL/min/1.73m2); Glucose 87 mg/dL (74-106); HDL Cholesterol 51 mg/dL (40-60); Potassium 4.1 mmol/L (3.5-5.1); Sodium 140 mmol/L (136-145); Total Protein 7.2 g/dL (6.4-8.2); Triglyceride 141 mg/dL (<150)
[2023-03-11 19:09] LABS: PSA, Diagnostic 5.5 ng/mL (<=6.5)
== END 2023-03-11 01:55 | disposition home or self-care (01) ==
LOC: LBO 01:55
PROVIDERS: PCP Nurse Practitioner; Visit Provider Urology
DX: R97.20 Elevated prostate specific antigen [PSA] (principal); E04.1 Nontoxic single thyroid nodule; R63.5 Abnormal weight gain; E78.5 Hyperlipidemia, unspecified; I10 Essential (primary) hypertension; J45.909 Unspecified asthma, uncomplicated; N52.9 Male erectile dysfunction, unspecified
CPT/HCPCS: 36415; 80053; 80061; 84153; 84443; 85025

== ENCOUNTER → 2023-03-21 07:58 | Outpatient (BNVA) | payer MEDICARE, SELFPAY | PROVIDERS: PCP Nurse Practitioner; Visit Provider Urology | DX: R97.20 Elevated prostate specific antigen [PSA] (principal) | CPT/HCPCS: 99213 ==

== ENCOUNTER 2023-05-03 15:06 | Outpatient (REF) | payer MEDICARE, SELFPAY ==
[2023-05-05 11:52] LABS: Lyme Ab w Rflx to Lyme Confirm Negative (Negative)
== END 2023-05-03 15:07 | disposition home or self-care (01) ==
LOC: LBN 15:06
PROVIDERS: PCP Nurse Practitioner; Visit Provider Physician Assistant Medical
DX: T14.8XXA Other injury of unspecified body region, initial encounter (principal); W57.XXXA Bitten or stung by nonvenomous insect and other nonvenomous arthropods, initial encounter; Z01.84 Encounter for antibody response examination
CPT/HCPCS: 86618

== ENCOUNTER → 2023-07-16 18:30 | Outpatient (CLI) | payer MEDICARE, SELFPAY ==
--- NOTE | 2023-07-16 | DI.RAD_ITS ---
Exam(s) XR HAND LT COMPLETE EXAM: XR HAND LT COMPLETE CLINICAL HISTORY: LT HAND PAIN/SWELLING OVER 2ND, 3RD, 4TH MCP WO TRAUMA, M79.642,. TECHNIQUE: 2D digital imaging was performed of the left hand. Three views were obtained. AP, later al and oblique views were obtained. COMPARISON: No exams were available for comparison FINDINGS: BONES: No acute fracture is present. No bony destructive lesion is seen. JOINTS: No dislocation present. There are marked degenerative changes seen of the hand and wrist neil acterized by joint space narrowing and osteophytes. The findings are marked at the 1st carpometacarp al joint. There is chondrocalcinosis of the TFCC. SOFT TISSUE: Normal. IMPRESSION: Osteoarthritis of the left hand. The findings are most marked at the 1st CMC joint. DATA REPOSITORY: RADIATION DOSE DELIVERED:
--- NOTE | 2023-07-16 16:49 | DI.VRAD_ITS ---
PROCEDURE INFORMATION: Exam: XR Left Hand Exam date and time: 07/16/2023 4:35 PM Age: 73 years old Clinical indication: Other: Left hand pain swelling over 2nd, 3rd, 4th mcp wo trauma TECHNIQUE: Imaging protocol: Radiologic exam of the left hand. Views: 3 or more views. COMPARISON: No relevant prior studies available. FINDINGS: Bones/joints: Degenerative changes at 1st carpometacarpal articulation with flattening and fragmentation of the trapezium. The 1st metacarpal is also subluxed in a radial direction. Calcifications of triangular fibrocartilage. No acute fracture. Soft tissues: Normal. IMPRESSION: No acute findings. Dictated and Authenticated by: Sanjiv Graves MD. Ordering:PHI Mclaughlin MD
== END ==
PROVIDERS: PCP Nurse Practitioner; Visit Provider Physician Assistant Medical
DX: S63.062A Subluxation of metacarpal (bone), proximal end of left hand, initial encounter (principal); M19.042 Primary osteoarthritis, left hand; M11.242 Other chondrocalcinosis, left hand; X58.XXXA Exposure to other specified factors, initial encounter
CPT/HCPCS: 73130

== ENCOUNTER 2023-07-23 16:06 | Outpatient (REF) | payer MEDICARE, SELFPAY ==
[2023-07-25 11:07] LABS: Lyme Ab w Rflx to Lyme Confirm Negative (Negative)
== END 2023-07-23 16:07 | disposition home or self-care (01) ==
LOC: LBN 16:06
PROVIDERS: PCP Nurse Practitioner; Visit Provider Physician Assistant Medical
DX: M79.642 Pain in left hand (principal)
CPT/HCPCS: 86618

== ENCOUNTER 2023-07-29 01:48 | Outpatient (CLI) | payer MEDICARE, SELFPAY ==
[2023-07-29 13:03] LABS: Abs Immature Grans 0.04 10^3/uL (0.0-0.06); Absolute Basophil Count 0.07 10^3/uL (0.0-0.2); Absolute Eosinophil Count 0.39 10^3/uL (0.0-0.7); Absolute Neutrophil Count 3.17 10^3/uL (1.2-6.7); Eosinophils % 5.6; HCT 42.3 % (40.0-50.0); Immature Grans % 0.6; Lymphocytes % 38.7; MCH 31.1 pg (27.0-33.0); MCHC 33.1 % (32.0-36.0); MCV 94 fL (80-95); MPV 8.8 fL (8.0-11.0); Monocytes % 8.6; Neutrophils % 45.5; Platelet Count 462 10^3/uL (130-400); RDW 12.8 % (11.8-14.1); WBC 6.97 10^3/uL (4.4-10.8)
[2023-07-29 13:06] LABS: ESR 7 mm/hr (0-20)
[2023-07-29 22:15] LABS: Rheumatoid Factor <8.6 IU/mL (<12.0)
[2023-07-30 09:51] LABS: Cyclic Citrullinated Peptide <2.5 U/mL (<5.0)
[2023-07-30 10:25] LABS: Lyme Ab w Rflx to Lyme Confirm Negative (Negative)
[2023-07-30 12:49] LABS: ANA Interpretation Negative (Negative)
[2023-07-31 22:25] LABS: Anaplasma phagocytophilum Negative (Negative); B. miyamotoi PCR Negative (Negative); Babesia divergens/MO-1 Negative (Negative); Babesia duncani Negative (Negative); Babesia microti Negative (Negative); Ehrlichia chaffeensis Negative (Negative); Ehrlichia ewingii/canis Negative (Negative); Ehrlichia muris eauclairensis Negative (Negative)
== END 2023-07-29 01:49 | disposition home or self-care (01) ==
PROVIDERS: Absent Provider Nurse Practitioner; PCP Nurse Practitioner; Referring Provider Nurse Practitioner; Visit Provider Nurse Practitioner
DX: R53.83 Other fatigue; J45.909 Unspecified asthma, uncomplicated; M19.042 Primary osteoarthritis, left hand
CPT/HCPCS: 36415; 85652; 86200; 87798; 85025; 86038; 86140; 86431; 86618

== ENCOUNTER → 2023-08-25 09:26 | Outpatient (BNVA) | payer MEDICARE, SELFPAY | PROVIDERS: PCP Nurse Practitioner; Referring Provider Nurse Practitioner | DX: M18.12 Unilateral primary osteoarthritis of first carpometacarpal joint, left hand (principal); R20.0 Anesthesia of skin; M79.602 Pain in left arm | CPT/HCPCS: 99213 ==

== ENCOUNTER 2023-10-03 01:17 | Outpatient (CLI) | payer MEDICARE, SELFPAY ==
[2023-10-03 20:31] LABS: PSA, Diagnostic 8.5 ng/mL (<=6.5)
== END 2023-10-03 01:18 | disposition home or self-care (01) ==
LOC: LBO 01:17
PROVIDERS: PCP Nurse Practitioner; Visit Provider Urology
DX: R97.20 Elevated prostate specific antigen [PSA] (principal)
CPT/HCPCS: 36415; 84153

== ENCOUNTER → 2023-10-10 10:25 | Outpatient (BNVA) | payer MEDICARE, SELFPAY | PROVIDERS: PCP Nurse Practitioner; Referring Provider Nurse Practitioner; Visit Provider Urology | DX: R97.20 Elevated prostate specific antigen [PSA] (principal); R35.1 Nocturia; R39.12 Poor urinary stream | CPT/HCPCS: 99214 ==

== ENCOUNTER → 2023-10-17 08:53 | Outpatient (BNVA) | payer MEDICARE, SELFPAY | PROVIDERS: PCP Nurse Practitioner; Referring Provider Nurse Practitioner | DX: G56.22 Lesion of ulnar nerve, left upper limb (principal); R29.898 Other symptoms and signs involving the musculoskeletal system | CPT/HCPCS: 99213 ==

== ENCOUNTER 2023-11-10 13:19 | Emergency (ER) | payer MEDICARE, SELFPAY ==
[2023-11-10 13:27] VITALS: BP 176/82; PULSE 68; RESP 18; TEMP 36.5; O2SAT 98
--- NOTE | 2023-11-10 14:22 | W.ED.GENAD ---
Discharge Plan Disposition Patient Disposition: Home Condition: Stable Discharge Details Clinical Impression: Rash Primary Care Provider: Anne-Marie Palencia ED Provider: Jefry Lake Home Meds and New Rx's Prescriptions: New cephalexin 500 mg capsule 500 mg PO TID 7 Days Qty: 21 0RF ketoconazole 2 % cream 1 applic topical DAILY 14 Days Qty: 30 0RF No Action lisinopril 10 mg tablet 10 mg PO HS Qty: 90 3RF (DME) Custom Shoe and Brace See Rx Instructions .ROUTE .MEDSUPPLY Qty: 2 0RF Rx Instructions: Bilateral fixed cavovarus deformity with h/o CMT, severe tibiotalar arthritis, and multiple surgeries. Please provide a custom foot with brace of the ankle, KELLI type boot or other combination. acetaminophen [Tylenol Arthritis Pain] 650 mg tablet extended release 1,300 mg PO PRN lidocaine 4 % adhesive patch,medicated 1 patch topical DAILY PRN THC inhalation HS PRN Varicella-Zoster Ge/As01b/Pf [Shingrix Vial Kit] 50 MCG INJ 50 mcg IM ONCE Qty: 1 1RF loratadine 10 mg tablet 10 mg PO DAILY sildenafil 50 mg tablet 50 mg PO DAILY PRN (Reason: sexual activity) Qty: 30 12RF Rx Instructions: administer 30 minutes to 4 hours before activity Discharge Instructions Instructions: Cellulitis (DC), Tinea Corporis (ED) Additional Instructions: Please trial antibiotic and topical antifungal. Please return for any worsening symptoms. HPI General Date/Time Provider Initiated Documentation: 11/10/23 14:10. HPI Narrative: 73-year-old male presents with painful raised rash to right groin that has been slowly progressing over the last month. Denies fevers chills nausea vomiting or other systemic signs of illness. Related Data Home Medications Medication Instructions Recorded Confirmed loratadine 10 mg tablet 10 mg PO DAILY 01/17/22 10/17/23 Custom Shoe and Brace #2 ea 10/15/22 10/17/23 lisinopril 10 mg tablet 10 mg PO HS #90 tabs 12/17/22 10/17/23 sildenafil 50 mg tablet 50 mg PO DAILY PRN sexual activity 03/21/23 10/17/23 #30 tabs acetaminophen 650 mg 1,300 mg PO PRN 06/18/23 10/17/23 tablet,extended release (Tylenol Arthritis Pain) lidocaine 4 % topical patch 1 patch topical DAILY PRN 06/18/23 10/17/23 THC inhalation HS PRN 10/13/23 10/17/23 cephalexin 500 mg capsule 500 mg PO TID 7 days #21 caps 11/10/23 ketoconazole 2 % topical cream 1 applic topical DAILY 14 days #30 11/10/23 grams Previous Rx's Medication Instructions Recorded Custom Shoe and Brace #2 ea 10/15/22 lisinopril 10 mg tablet 10 mg PO HS #90 tabs 12/17/22 sildenafil 50 mg tablet 50 mg PO DAILY PRN sexual activity 03/21/23 #30 tabs cephalexin 500 mg capsule 500 mg PO TID 7 days #21 caps 11/10/23 ketoconazole 2 % topical cream 1 applic topical DAILY 14 days #30 11/10/23 grams Allergies Allergy/AdvReac Type Severity Reaction Status Date / Time Environmental Allergy Mild Rhinitis Uncoded 10/17/23 09:21 General Stated Complaint: RashLesion ANDRZEJ: 4 Review of Systems Narrative: Review of Systems Constitutional: negative Eyes: negative ENT: negative Cardiovascular: negative Respiratory: negative Gastrointestinal: negative : negative Musculoskeletal: negative Skin: Rash Neurologic: negative Psych: negative Exam Narrative Exam Narrative: Physical Examination General: alert, awake, cooperative, resting comfortably, no acute distress Skin: Well-circumscribed erythematous indurated area of skin right groin approximately 5 cm long by 2.5 cm wide slightly glistening with crusting at edges no fluctuance no purulence Course Vital Signs Vital signs: Vital Signs Temperature 36.5 C 11/10/23 13:27 Pulse 68 11/10/23 13:27 Respiratory Rate 18 11/10/23 13:27 Blood Pressure 176/82 H 11/10/23 13:27 Pulse Oximetry 98 11/10/23 13:27 Temperature 36.5 C 11/10/23 13:27 Temperature Source Tympanic 11/10/23 13:27 Pulse 68 11/10/23 13:27 Respiratory Rate 18 11/10/23 13:27 Blood Pressure 176/82 H 11/10/23 13:27 Blood Pressure Position Sitting 11/10/23 13:27 Pulse Oximetry 98 11/10/23 13:27 Oxygen Delivery Method Room Air 11/10/23 13:27 Oxygen Flow Rate 0 11/10/23 13:27 Pain Level 1 11/10/23 13:27 Medical Decision Making 73-year-old male presents with red raised rash on his right groin over the past couple of months, slightly painful no systemic signs of illness afebrile nontoxic, well-circumscribed area of induration erythema to right groin approximately 5 cm x 2.5 cm with glistening flesh and peripheral crusting consider tinea versus cellulitis low suspicion for abscess low suspicion for coalesced herpes zoster no evidence of deep space infection or systemic illness. Will trial Keflex and topical ketoconazole. Home care instructions and strict return precautions given Quality:[facility] Health Related Social Needs: No Data to Display [facility] All Active Problems (Updated 11/10/23 @ 14:47 by Jefry Lake MD) Rash (Acute) Left hand weakness (Acute) Left median nerve neuropathy (Acute) Wrist--[facility] Neuromuscular 09/25/23 Ulnar neuropathy at elbow of left upper extremity (Acute) [facility] Neuromuscular 09/25/23 Left upper limb pain (Acute) Left upper extremity numbness (Acute) Osteoarthritis of carpometacarpal joint of left thumb (Acute) Acquired cavovarus deformity of both feet (Acute) Arthritis of right ankle (Acute) Arthritis of left ankle (Acute) Acute on chronic blood loss anemia (Acute) Rectal bleeding (Acute) Arthritis of spine (Acute 02/02/14) Tlciewe-Naauh-Woole disease type 1 (Acute 02/02/14) DJD (degenerative joint disease), cervical (Acute 10/08/17) 10/07/17 MRI central spinal stenosis. No cord impingment Elevated PSA (Acute 12/29/17) Erectile dysfunction of organic origin (Acute 03/14/17) Essential hypertension (Acute 06/19/16) Hyperlipidemia (Acute 03/07/14) PCEq risk 11.2%; LDL baseline 134; declines statin Low back pain (Acute 02/02/14) S/P carpal tunnel release (Acute 02/03/18) Sacral radiculopathy (Acute 02/02/14) Thyroid nodule (Acute 10/30/17) ENT 10/30/17 recheck in 6 months RH 04/30/18 thyroid US-no change in L sided nodule per ov note-LH 11/25/19 follow up in 1 yr. cgc Bilateral foot pain (Acute) reported 09/21/18-[facility] [place] [facility]. Dr. Brando Franco. Witnessed apneic spells (Acute) SOB (shortness of breath) (Acute) 11/27/19 Sleep Study ( [facility]) Fatigue (Acute) Impacted cerumen of right ear (Acute) Sensorineural hearing loss (SNHL) of both ears (Acute) Collapse of left external ear canal (Acute) Obstructive sleep apnea (adult) (pediatric) (Acute) Insomnia, unspecified (Acute) Left thyroid nodule (Acute) Impacted cerumen, bilateral (Acute) Conductive hearing loss, external ear (Acute) Balance disorder (Acute) Gait disorder (Acute) SARS-CoV-2 positive (Acute ~01/27/22) Surgical History History of carpal tunnel surgery of right wrist History of meniscectomy of left knee H/O foot surgery 1960's H/O colonoscopy H/O vasectomy Family History Other Cancer Muscular dystrophy Social History Smoking/Tobacco Use Status: Former Tobacco Use Quit Date: 04/14/85 Smoking risk assessment performed?: Yes Alcohol Intake: current Alcohol Intake frequency: 3 or more drinks per day Alcohol type: wine Details: 3 good glasses of wine a day. Drug use: Occasionally Substance use type: marijuana Household members: spouse Housing: house Number of Children: 1 Communication Needs: Hard of Hearing and Corrective Lenses Pets and animals: Yes (1 cat) Pets and animals: cat(s) What is your relationship status?: Panel score (0-1 are the most socially isolated patients): 1 Seatbelt use: always Drive intox or ride w/intox limousine driver: No Working smoke detector in home: Yes Fire extinguisher in home: Yes Carbon monox detector in home: No Do you feel safe at home: Yes Do you feel safe in your relationship?: Yes
[2023-11-10] MEDS: Cephalexin 500 MG CAP PO (14:30)
== END 2023-11-10 14:57 | disposition home or self-care (01) ==
PROVIDERS: Emergency Provider Emergency Medicine; PCP Nurse Practitioner
DX: R21 Rash and other nonspecific skin eruption (principal)
CPT/HCPCS: 99283

== ENCOUNTER 2023-11-24 18:10 | Outpatient (CLI) | payer MEDICARE, SELFPAY ==
[2023-11-24 15:40] LABS: Abs Immature Grans 0.02 10^3/uL (0.0-0.06); Absolute Basophil Count 0.07 10^3/uL (0.0-0.2); Absolute Eosinophil Count 0.33 10^3/uL (0.0-0.7); Absolute Lymphocyte Count 2.81 10^3/uL (1.2-3.4); Absolute Monocyte Count 0.64 10^3/uL (0.1-0.8); Absolute Neutrophil Count 3.59 10^3/uL (1.2-6.7); Basophils % 0.9; Eosinophils % 4.4; HCT 44.1 % (40.0-50.0); HGB 14.7 g/dL (13.5-17.5); Immature Grans % 0.3; Lymphocytes % 37.7; MCH 30.9 pg (27.0-33.0); MCHC 33.3 % (32.0-36.0); MCV 93 fL (80-95); MPV 9.5 fL (8.0-11.0); Monocytes % 8.6; Neutrophils % 48.1; Platelet Count 310 10^3/uL (130-400); RBC 4.75 10^6/uL (4.36-5.78); RDW 13.2 % (11.8-14.1); RDW-SD 45.1 fL; WBC 7.46 10^3/uL (4.4-10.8)
[2023-11-24 22:08] LABS: CRP, High Sensitivity 3.53 mg/L (See Note)
== END 2023-11-24 18:11 | disposition home or self-care (01) ==
LOC: LBO 18:12
PROVIDERS: PCP Nurse Practitioner; Visit Provider Family Medicine
DX: R21 Rash and other nonspecific skin eruption (principal)
CPT/HCPCS: 36415; 86141; 85025

== ENCOUNTER → 2024-02-11 08:00 | Outpatient (BNVA) | payer MEDICARE, SELFPAY | PROVIDERS: PCP Nurse Practitioner; Referring Provider Nurse Practitioner; Visit Provider Nurse Practitioner Adult Health | DX: G60.0 Hereditary motor and sensory neuropathy (principal); R29.898 Other symptoms and signs involving the musculoskeletal system | CPT/HCPCS: 95885; 95911; 99215 ==

== ENCOUNTER 2024-03-14 07:17 | Emergency (ER) | payer MEDICARE, SELFPAY ==
[2024-03-14 07:20] VITALS: BP 152/127; PULSE 83; RESP 20; O2SAT 98
[2024-03-14] MEDS: Lidocaine 2% Jelly 6 ML SYR (07:40)
[2024-03-14 07:42] VITALS: BP 152/127; PULSE 83; RESP 20; TEMP 36.6; O2SAT 98
--- NOTE | 2024-03-14 07:42 | W.ED.GENAD ---
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 Please provide a custom foot with brace of the ankle, KELLI type boot or other combination. lisinopril 10 mg tablet 10 mg PO HS Qty: 90 3RF acetaminophen [Tylenol Arthritis Pain] 650 mg tablet extended release 1,300 mg PO PRN THC 1 dose inhalation HS PRN triamcinolone acetonide 0.1 % cream 1 applic topical BID Qty: 30 0RF Varicella-Zoster Ge/As01b/Pf [Shingrix Vial Kit] 50 MCG INJ 50 mcg IM ONCE Qty: 1 1RF loratadine 10 mg tablet 10 mg PO DAILY sildenafil 50 mg tablet 50 mg PO DAILY PRN (Reason: sexual activity) Qty: 30 12RF Rx Instructions: administer 30 minutes to 4 hours before activity Discharge Instructions Additional Instructions: You are seen in the emergency department for your urinary retention. A catheter was placed. Please call the urology team for follow-up next week. As we discussed if you develop pain in the middle of your back if you develop any weakness in your legs or if you develop any numbness or tingling between your legs please return to the emergency department. Referrals: Alex Fernandez MD [ [facility] STAFF PHYSICIAN] - [facility] General Date/Time Provider Initiated Documentation: 03/14/24 07:42. HPI Narrative: MDM This is an overall well-appearing normothermic and not tachycardic 72-year-old male acute urinary retention with history of difficulty voiding at night most likely consistent with BPH for which patient will receive Guerrero catheter placement and assessment of his renal function. No pain out of proportion to suggest necrotizing soft tissue infection. Patient does note that he was gardening more than usual 2 days ago and has some pain in his right lower back. He has no midline back pain and as result given his SI joint tenderness my suspicion for cauda equina is low as I did not feel that the patient required an emergent MRI. Patient is circumcised and not having any groin pain so my suspicion is low for Tani's gangrene. Furthermore patient is not a diabetic. Patient has had some urinary frequency but no dysuria. No testicular pain so my suspicion is low for torsion. Soft nontender abdomen so not suspicious for appendicitis. Will ensure that he is not in acute renal failure. He is not anticoagulated so I am not suspicious for clot hematuria. 8:38 AM I asked health coordinator Monica to have the patient seen later this week by urology. I also passed along the clinic number for the urology team. Patient's labs were reassuring with no AYAN. No anemia no thrombocytopenia. Urinalysis hematuria positive but not consistent with UTI. Patient and I discussed that he should return to the ED if he develops any weakness any numbness or tingling between his legs or if you develop any abdominal pain. He understood his return indications and was discharged with empiric trial of expectant outpatient management. HPI This is a 74-year-old male who has a history of hypertension who follows with urology arrived to the emergency department via private vehicle in the setting of inability to void since midnight last night. He has never had similar symptoms in the past. He does note that he had decreased urine output yesterday. Had some dysuria after midnight last night. He denies fevers vomiting chest pain shortness of breath. He is not anticoagulated. No prior episodes of similar symptoms. No saddle anesthesia. Patient does note that he has some left sided pain in his back which began 2 days ago after gardening. He denies any recent spinal instrumentation. He is not anticoagulated. He has not taken any falls. He is not an IV drug user. Exam General: Well-appearing in no acute distress speaking in complete sentences. Patient reports feeling markedly improved status post Guerrero catheter. Head: Normocephalic, atraumatic. Eye: Extraocular eye movements intact. No conjunctival injection. No scleral icterus. Ear, nose, mouth, throat: Grossly normal inspection. Normal voice, handling secretions normally. Neck: Trachea midline. Cardiovascular: Well-perfused distal extremities. Respiratory: Nonlabored respiration. Gastrointestinal: Nondistended abdomen. Soft nontender. Back: No midline thoracic nor lumbar spinal tenderness. No step-offs. No deformities. No rash to back. Patient has tenderness over his left SI joint. : Guerrero catheter in place. Draining clear yellow urine. Musculoskeletal: No edema. Moving all 4 extremities spontaneously. 5 out of 5 bilateral lower extremity strength. 2+ PT and DP pulses bilaterally. Skin: Normal for age and race, grossly normal temperature and turgor. No acute rash. Neurologic: Alert and appropriate, no apparent acute deficits. Psychiatric: Mood and manner are appropriate. Grooming and personal hygiene are appropriate. Related Data Home Medications Medication Instructions Recorded Confirmed loratadine 10 mg tablet 10 mg PO DAILY 01/17/22 03/14/24 Custom Shoe and Brace #2 ea 10/15/22 03/14/24 sildenafil 50 mg tablet 50 mg PO DAILY PRN sexual activity 03/21/23 03/14/24 #30 tabs acetaminophen 650 mg 1,300 mg PO PRN 06/18/23 03/14/24 tablet,extended release (Tylenol Arthritis Pain) THC 1 dose inhalation HS PRN 10/13/23 03/14/24 triamcinolone acetonide 0.1 % 1 applic topical BID #30 grams 11/24/23 03/14/24 topical cream lisinopril 10 mg tablet 10 mg PO HS #90 tabs 12/23/23 03/14/24 Previous Rx's Medication Instructions Recorded Custom Shoe and Brace #2 ea 10/15/22 sildenafil 50 mg tablet 50 mg PO DAILY PRN sexual activity 03/21/23 #30 tabs triamcinolone acetonide 0.1 % 1 applic topical BID #30 grams 11/24/23 topical cream lisinopril 10 mg tablet 10 mg PO HS #90 tabs 12/23/23 Allergies Allergy/AdvReac Type Severity Reaction Status Date / Time Environmental Allergy Mild Rhinitis Uncoded 03/14/24 07:42 General Stated Complaint: Urinary ANDRZEJ: 2 Course Vital Signs Vital signs: Vital Signs Pulse 83 03/14/24 07:20 Respiratory Rate 03/14/24 07:20 Blood Pressure 152/127 H 03/14/24 07:20 Pulse Oximetry 98 03/14/24 07:20 Pulse 83 03/14/24 07:20 Respiratory Rate 20 03/14/24 07:20 Respiratory Effort Normal, Non-Labored 03/14/24 07:33 Blood Pressure 152/127 H 03/14/24 07:20 Blood Pressure Position Standing 03/14/24 07:20 Pulse Oximetry 98 03/14/24 07:20 Oxygen Delivery Method Room Air 03/14/24 07:20 Oxygen Flow Rate 0 03/14/24 07:20 Pain Level 6 03/14/24 07:20 Medical Decision Making Quality:SDOH Health Related Social Needs: No Data to Display PFSH All Active Problems (Updated 03/14/24 @ 08:39 by Marklel Schaffer MD) Acute urinary retention (Acute) Left hand weakness (Acute) Left median nerve neuropathy (Acute) Wrist--[facility] Neuromuscular 09/25/23 Ulnar neuropathy at elbow of left upper extremity (Acute) [facility] Neuromuscular 09/25/23 Left upper limb pain (Acute) Left upper extremity numbness (Acute) Osteoarthritis of carpometacarpal joint of left thumb (Acute) Acquired cavovarus deformity of both feet (Acute) Arthritis of right ankle (Acute) Arthritis of left ankle (Acute) Acute on chronic blood loss anemia (Acute) Rectal bleeding (Acute) Arthritis of spine (Acute 02/02/14) Ogvljpa-Efxcf-Sxkou disease type 1 (Acute 02/02/14) DJD (degenerative joint disease), cervical (Acute 10/08/17) 10/07/17 MRI central spinal stenosis. No cord impingment Elevated PSA (Acute 12/29/17) Erectile dysfunction of organic origin (Acute 03/14/17) Essential hypertension (Acute 06/19/16) Hyperlipidemia (Acute 03/07/14) PCEq risk 11.2%; LDL baseline 134; declines statin Low back pain (Acute 02/02/14) S/P carpal tunnel release (Acute 02/03/18) Sacral radiculopathy (Acute 02/02/14) Thyroid nodule (Acute 10/30/17) ENT 10/30/17 recheck in 6 months RH 04/30/18 thyroid US-no change in L sided nodule per ov note-LH 11/25/19 follow up in 1 yr. cgc Bilateral foot pain (Acute) reported 09/21/18-[facility]. Dr. Brando Franco. Witnessed apneic spells (Acute) SOB (shortness of breath) (Acute) 11/27/19 Sleep Study ( [facility]) Fatigue (Acute) Impacted cerumen of right ear (Acute) Sensorineural hearing loss (SNHL) of both ears (Acute) Collapse of left external ear canal (Acute) Obstructive sleep apnea (adult) (pediatric) (Acute) Insomnia, unspecified (Acute) Left thyroid nodule (Acute) Impacted cerumen, bilateral (Acute) Conductive hearing loss, external ear (Acute) Balance disorder (Acute) Gait disorder (Acute) SARS-CoV-2 positive (Acute ~01/27/22) Surgical History (Updated 03/04/24 @ 08:38 by Verito Tipton LPN) History of carpal tunnel release (~02/2024) (left) Dr Orellana at History of carpal tunnel surgery of right wrist History of meniscectomy of left knee H/O foot surgery 1959's H/O colonoscopy H/O vasectomy Family History Other Cancer Muscular dystrophy Social History Smoking/Tobacco Use Status: Former Tobacco Use Quit Date: 04/14/85 Smoking risk assessment performed?: Yes Alcohol Intake: current Alcohol Intake frequency: 3 or more drinks per day Alcohol type: wine Details: 3 good glasses of wine a day. 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
[2024-03-14 08:07] LABS: Abs Immature Grans 0.03 10^3/uL (0.0-0.06); Absolute Basophil Count 0.04 10^3/uL (0.0-0.2); Absolute Eosinophil Count 0.11 10^3/uL (0.0-0.7); Absolute Lymphocyte Count 1.55 10^3/uL (1.2-3.4); Absolute Monocyte Count 0.97 10^3/uL (0.1-0.8); Absolute Neutrophil Count 5.88 10^3/uL (1.2-6.7); Basophils % 0.5 %; Eosinophils % 1.3 %; HCT 42.5 % (40.0-50.0); HGB 14.2 g/dL (13.5-17.5); Immature Grans % 0.3 %; Lymphocytes % 18.1 %; MCH 31.6 pg (27.0-33.0); MCHC 33.4 % (32.0-36.0); MCV 95 fL (80-95); MPV 9.6 fL (8.0-11.0); Monocytes % 11.3 %; Neutrophils % 68.5 %; Platelet Count 287 10^3/uL (130-400); RBC 4.49 10^6/uL (4.36-5.78); RDW 12.9 % (11.8-14.1); RDW-SD 45.2 fL; WBC 8.58 10^3/uL (4.4-10.8)
[2024-03-14 08:09] LABS: Bilirubin Negative (Negative); Blood Moderate (Negative); Clarity Clear (Clear); Glucose Negative (Negative); Ketones Negative (Negative); Leukocyte Esterase Negative (Negative); Nitrite Negative (Negative); Urobilinogen 0.2 mg/dL (Up to 0.2); pH 5.5 (5-8)
[2024-03-14 08:10] VITALS: BP 147/80
[2024-03-14 08:14] LABS: Anion Gap 10.2 mmol/L (3-11); BUN 7 mg/dL (7-18); CO2 24.8 mmol/L (21.0-32.0); CREATININE 0.7 mg/dL (0.70-1.30); Calcium 9.5 mg/dL (8.5-10.1); Chloride 107 mmol/L (98-107); Glucose 109 mg/dL (74-106); Potassium 4.1 mmol/L (3.5-5.1); Sodium 142 mmol/L (136-145)
[2024-03-14 08:22] LABS: Bacteria Negative HPF (Negative); C & S Indicated? No; Casts Negative LPF (Negative); Crystals Negative HPF (Negative); Epithelial Cells Rare HPF (Negative); Mucus Negative (Negative); RBC 20-50 HPF (0-2); WBC 0-2 HPF (0-5)
--- NOTE | 2024-03-14 08:40 | NUR.NOTE ---
Referral faxed to Urology for follow up to Urinary Retention some time this week.
[2024-03-14 09:09] VITALS: BP 158/78; PULSE 67; RESP 18; O2SAT 97
== END 2024-03-14 09:11 | disposition home or self-care (01) ==
PROVIDERS: Emergency Provider Emergency Medicine; PCP Nurse Practitioner
DX: R30.0 Dysuria (principal); R33.9 Retention of urine, unspecified; I10 Essential (primary) hypertension; Z79.899 Other long term (current) drug therapy
CPT/HCPCS: 36415; 51702; 80048; 99283; 99285; 74177; 81003; 81015; 85025; 99284; J0131; J3490

== ENCOUNTER 2024-03-14 15:29 | Emergency (ER) | payer MEDICARE, SELFPAY ==
[2024-03-14 15:36] VITALS: BP 202/103; PULSE 95; RESP 22; TEMP 36.7; O2SAT 98
--- NOTE | 2024-03-14 15:53 | W.ED.GENAD ---
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 Please provide a custom foot with brace of the ankle, KELLI type boot or other combination. lisinopril 10 mg tablet 10 mg PO HS Qty: 90 3RF acetaminophen [Tylenol Arthritis Pain] 650 mg tablet extended release 1,300 mg PO PRN THC 1 dose inhalation HS PRN triamcinolone acetonide 0.1 % cream 1 applic topical BID Qty: 30 0RF Varicella-Zoster Ge/As01b/Pf [Shingrix Vial Kit] 50 MCG INJ 50 mcg IM ONCE Qty: 1 1RF loratadine 10 mg tablet 10 mg PO DAILY sildenafil 50 mg tablet 50 mg PO DAILY PRN (Reason: sexual activity) Qty: 30 12RF Rx Instructions: administer 30 minutes to 4 hours before activity Discharge Instructions Instructions: Urinary Retention Additional Instructions: Please follow-up with urology team within the next couple of days if you have any issues please return to the emergency department HPI General Date/Time Provider Initiated Documentation: 03/14/24 15:45. HPI Narrative: 74-year-old male recently treated for urinary retention this morning improved after Guerrero catheter placement presents with fullness in the abdomen pain to lower abdomen and back as well as decreased urine output into bag noticed that he is leaking around Guerrero catheter from urethra Related Data Home Medications Medication Instructions Recorded Confirmed loratadine 10 mg tablet 10 mg PO DAILY 01/17/22 03/14/24 Custom Shoe and Brace #2 ea 10/15/22 03/14/24 sildenafil 50 mg tablet 50 mg PO DAILY PRN sexual activity 03/21/23 03/14/24 #30 tabs acetaminophen 650 mg 1,300 mg PO PRN 06/18/23 03/14/24 tablet,extended release (Tylenol Arthritis Pain) THC 1 dose inhalation HS PRN 10/13/23 03/14/24 triamcinolone acetonide 0.1 % 1 applic topical BID #30 grams 11/24/23 03/14/24 topical cream lisinopril 10 mg tablet 10 mg PO HS #90 tabs 12/23/23 03/14/24 Previous Rx's Medication Instructions Recorded Custom Shoe and Brace #2 ea 10/15/22 sildenafil 50 mg tablet 50 mg PO DAILY PRN sexual activity 03/21/23 #30 tabs triamcinolone acetonide 0.1 % 1 applic topical BID #30 grams 11/24/23 topical cream lisinopril 10 mg tablet 10 mg PO HS #90 tabs 12/23/23 Allergies Allergy/AdvReac Type Severity Reaction Status Date / Time Environmental Allergy Mild Rhinitis Uncoded 03/14/24 16:43 General Stated Complaint: Urinary ANDRZEJ: 3 Review of Systems Narrative: Review of Systems Constitutional: negative Eyes: negative ENT: negative Cardiovascular: negative Respiratory: negative Gastrointestinal: negative : Suprapubic fullness flank discomfort Musculoskeletal: negative Skin: negative Neurologic: negative Psych: negative Exam Narrative Exam Narrative: Physical Examination General: alert, awake, cooperative, patient appears uncomfortable HEENT: normocephalic, atraumatic; PERRL, EOM intact, conjunctiva normal; no nasal discharge; moist mucous membranes, oral and pharyngeal mucosa normal, tolerating secretions Neck: supple, trachea midline; full ROM GI: abdomen soft, non-tender : Suprapubic fullness Skin: no lesions, rashes or trauma appreciated Neuro: AAOx3, normal speech, moving all extremities Psych: Appropriate mood and affect Course Vital Signs Vital signs: Vital Signs Temperature 36.7 C 03/14/24 15:36 Pulse 95 H 03/14/24 15:36 Respiratory Rate 22 03/14/24 15:36 Blood Pressure 202/103 H 03/14/24 15:36 Pulse Oximetry 98 03/14/24 15:36 Temperature 36.7 C 03/14/24 15:36 Pulse 95 H 03/14/24 15:36 Respiratory Rate 22 03/14/24 15:36 Blood Pressure 202/103 H 03/14/24 15:36 Pulse Oximetry 98 03/14/24 15:36 Pain Level 9 03/14/24 15:36 Medical Decision Making 74-year-old male treated for urinary retention this morning great improvement after Guerrero catheter was placed with 1000 cc of urine expressed this morning, presents with suprapubic fullness back discomfort and leaking around Guerrero catheter over the last couple of hours, afebrile nontoxic however does appear uncomfortable does have suprapubic fullness, consider obstruction of Guerrero catheter, nursing staff this morning noted sediment and blood in urine, will attempt to flush Guerrero catheter if unsuccessful will place new Guerrero catheter if unsuccessful will pursue imaging of abdomen pelvis to assess for Guerrero location as well as any other sources of outflow obstruction besides BPH muscles consider malignancy of prostate and/or bladder lower suspicion for ACS PE pneumonia pneumothorax aortic pathology bowel obstruction colitis or enteritis given history and physical. 18: 48 resting comfortably no acute distress feeling much better, good flow into Guerrero bag. CT unremarkable. Patient is close follow-up with urology in the coming days. Given home care instructions return precautions Quality:SDOH Health Related Social Needs: No Data to Display PFSH All Active Problems (Updated 03/14/24 @ 18:49 by Jefry Lake MD) Acute urinary retention (Acute) Acute urinary retention (Acute) Left hand weakness (Acute) Left median nerve neuropathy (Acute) Wrist--[facility] Neuromuscular 09/25/23 Ulnar neuropathy at elbow of left upper extremity (Acute) [facility] Neuromuscular 09/25/23 Left upper limb pain (Acute) Left upper extremity numbness (Acute) Osteoarthritis of carpometacarpal joint of left thumb (Acute) Acquired cavovarus deformity of both feet (Acute) Arthritis of right ankle (Acute) Arthritis of left ankle (Acute) Acute on chronic blood loss anemia (Acute) Rectal bleeding (Acute) Arthritis of spine (Acute 02/02/14) Zfgqvoz-Mksoh-Ritai disease type 1 (Acute 02/02/14) DJD (degenerative joint disease), cervical (Acute 10/08/17) 10/07/17 MRI central spinal stenosis. No cord impingment Elevated PSA (Acute 12/29/17) Erectile dysfunction of organic origin (Acute 03/14/17) Essential hypertension (Acute 06/19/16) Hyperlipidemia (Acute 03/07/14) PCEq risk 11.2%; LDL baseline 134; declines statin Low back pain (Acute 02/02/14) S/P carpal tunnel release (Acute 02/03/18) Sacral radiculopathy (Acute 02/02/14) Thyroid nodule (Acute 10/30/17) ENT 10/30/17 recheck in 6 months RH 04/30/18 thyroid US-no change in L sided nodule per ov note-LH 11/25/19 follow up in 1 yr. cgc Bilateral foot pain (Acute) reported 09/21/18-[facility]. Dr. Brando Franco. Witnessed apneic spells (Acute) SOB (shortness of breath) (Acute) 11/27/19 Sleep Study ( [facility]) Fatigue (Acute) Impacted cerumen of right ear (Acute) Sensorineural hearing loss (SNHL) of both ears (Acute) Collapse of left external ear canal (Acute) Obstructive sleep apnea (adult) (pediatric) (Acute) Insomnia, unspecified (Acute) Left thyroid nodule (Acute) Impacted cerumen, bilateral (Acute) Conductive hearing loss, external ear (Acute) Balance disorder (Acute) Gait disorder (Acute) SARS-CoV-2 positive (Acute ~01/27/22) Surgical History (Updated 03/04/24 @ 08:38 by Verito Tipton LPN) History of carpal tunnel release (~02/2024) (left) Dr Orellana at History of carpal tunnel surgery of right wrist History of meniscectomy of left knee H/O foot surgery 1959's H/O colonoscopy H/O vasectomy Family History Other Cancer Muscular dystrophy Social History Smoking/Tobacco Use Status: Former Tobacco Use Quit Date: 04/14/85 Smoking risk assessment performed?: Yes Alcohol Intake: current Alcohol Intake frequency: 3 or more drinks per day Alcohol type: wine Details: 3 good glasses of wine a day. 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
--- NOTE | 2024-03-14 16:15 | DI.CT_ITS ---
Exam(s) CT ABDOMEN PELVIS W EXAM: CT ABDOMEN PELVIS W CLINICAL HISTORY: flank pain abd pain, urinary retention today. TECHNIQUE: Imaging Protocol: Axial computed tomography images with coronal and sagittal reformatted images were created and reviewed CONTRAST MATERIAL: Intravenous: Omnipaque-350 100cc Oral: None COMPARISON: No exams were available for comparison FINDINGS: VISUALIZED LUNG BASES: No nodules nor pleural effusions evident. ABDOMEN: There is no ascites. LIVER: There is a solitary tiny benign hepatic cyst in the right lobe measuring 3 mm. No other focal liver findings. No dilated intrahepatic ducts. GALLBLADDER/BILIARY: No obvious gallbladder pathology. CBD is not dilated. PANCREAS: No evidence of pancreatic mass nor dilatation of the pancreatic duct. SPLEEN: Spleen is not enlarged. No obvious intrasplenic lesions. Splenic and portal veins are paten t. ADRENALS: There are no significant adrenal masses. KIDNEYS:No cysts evident. No solid renal masses. No calculi nor hydronephrosis.. ABDOMINAL AORTA: Abdominal aorta is not enlarged. LYMPH NODES:There is no retroperitoneal nor paraaortic adenopathy. ABDOMINAL WALL: No evidence of significant anterior abdominal wall nor inguinal hernia. GI: There is no evidence of bowel obstruction, free air, nor abscess. There is diverticulosis of the entire colon. This is most extensive in the sigmoid. No evidence of obvious acute diverticulitis. No free air. No abscess. No free fluid. PELVIS: GI: No evidence of appendicitis.No evidence of sigmoid diverticulitis. LYMPH NODES: There is no intrapelvic nor inguinal adenopathy. REPRODUCTIVE: Prostate gland is enlarged. There is asymmetry in the appearance of the seminal vesicl es. Right seminal vesicles somewhat enlarged and hypodense measuring approximately 4 x 2.7 x 1.8 cm . URINARY BLADDER: There is a Guerrero catheter in the urinary bladder. Bladder is collapsed around the F oley and difficult to evaluate. OSSEOUS: No fractures and no significant osseous lesions. Multilevel chronic degenerative disc disease. IMPRESSION: 1. There is Guerrero catheter in the urinary bladder and the bladder is collapsed around this Guerrero cath eter, this making evaluation for bladder masses difficult. 2. Prostate gland is enlarged measuring 5 cm wide. 3. There is asymmetry in the appearance of the seminal vesicles. The right seminal vesicle is enlarg ed and hypodense. Possibly related to infectious etiology. There are no previous CT scans for willow rison. Urology consultation is recommended. First read by [facility]. Final report called by myself to ER physician 03/15/2024 RADIATION DOSE DELIVERED: 840.79mGy.cm Total DLP DATA REPOSITORY: All CT scans at this facility are submitted to the National Radiology Data Registry (NRDR) Dose Index Registry (DIR) with the [employer] (A[employer]). RADIATION OPTIMIZATION: All CT scans at this facility use at least one of these dose optimization te chniques: automated exposure control; mA and/or kV adjustment per patient size (includes targeted exa ms where dose is matched to clinical indication); or iterative reconstruction.
[2024-03-14] MEDS: ACETAMINOPHEN 1,000 MG/100 ML BTL 400 MG IVPB (16:42)
[2024-03-14] MEDS: Normal Saline 1,000 ML 1000 ML IV (16:42)
[2024-03-14 16:44] VITALS: BP 202/103; PULSE 95; RESP 22; TEMP 36.7; O2SAT 98
[2024-03-14] MEDS: Normal Saline Flush 10 ML SYR IVP (16:56)
[2024-03-14] MEDS: Normal Saline - Diluent 50 ML VIAL IJ (16:57)
[2024-03-14] MEDS: Omnipaque 350 MG/ML 100 ML BTL IJ (16:58)
[2024-03-14 17:58] VITALS: BP 166/80
--- NOTE | 2024-03-14 18:34 | DI.VRAD_ITS ---
PROCEDURE INFORMATION: Exam: CT Abdomen And Pelvis With Contrast Exam date and time: 03/14/2024 5:01 PM Age: 74 years old Clinical indication: Other: Flank pain, abd pain, urinary retention today TECHNIQUE: Imaging protocol: Computed tomography of the abdomen and pelvis with contrast. Radiation optimization: All CT scans at this facility use at least one of these dose optimization techniques: automated exposure control; mA and/or kV adjustment per patient size (includes targeted exams where dose is matched to clinical indication); or iterative reconstruction. Contrast material: OMNI 350; Contrast volume: 100 ml; Contrast route: INTRAVENOUS (IV); COMPARISON: CT LOWER EXTREMITY RT WO 10/01/2022 3:13 PM FINDINGS: Liver: Normal. No mass. Gallbladder and biliary ducts: Normal. No calcified stones. No ductal dilation. Pancreas: Normal. No ductal dilation. Spleen: Normal. No splenomegaly. Adrenal glands: Normal. No mass. Kidneys and ureters: Renal perfusion symmetric without hydronephrosis or hydroureter. Stomach and bowel: Extensive diverticulosis without acute diverticulitis. Appendix: No evidence of appendicitis. Intraperitoneal space: Unremarkable. No free air. No significant fluid collection. Vasculature: Moderate atherosclerotic change present in the vasculature. Lymph nodes: Unremarkable. No enlarged lymph nodes. Urinary bladder: Guerrero catheter drains the bladder. Reproductive: Prostate slightly enlarged, 5 cm. Bones/joints: Moderate lumbar spondylosis. Moderate lumbar spondylosis. Soft tissues: Unremarkable. IMPRESSION: No acute abnormality seen to account for symptoms. Prostate is slightly enlarged. Dictated and Authenticated by: Alysia Grant MD. Ordering:KRISHAN Capps MD
== END 2024-03-14 18:59 | disposition home or self-care (01) ==
PROVIDERS: Emergency Provider Emergency Medicine; PCP Nurse Practitioner
DX: R33.8 Other retention of urine (principal)
CPT/HCPCS: 74177; J0131; J3490

== ENCOUNTER 2024-04-02 08:54 | Outpatient (CLI) | payer MEDICARE, SELFPAY ==
[2024-04-02 20:50] LABS: PSA, Diagnostic 16.1 ng/mL (<=6.5)
== END 2024-04-02 08:55 | disposition home or self-care (01) ==
PROVIDERS: PCP Nurse Practitioner; Visit Provider Urology
DX: R97.20 Elevated prostate specific antigen [PSA] (principal)
CPT/HCPCS: 36415; 84153

== ENCOUNTER → 2024-04-05 07:57 | Outpatient (BNVA) | payer MEDICARE, SELFPAY | PROVIDERS: PCP Nurse Practitioner; Referring Provider Nurse Practitioner; Visit Provider Nurse Practitioner Gerontology | DX: R33.8 Other retention of urine (principal) | CPT/HCPCS: 99212 ==

== ENCOUNTER → 2024-04-16 08:28 | Outpatient (BNVA) | payer MEDICARE, SELFPAY | PROVIDERS: PCP Nurse Practitioner; Visit Provider Urology | DX: R39.12 Poor urinary stream (principal); R97.20 Elevated prostate specific antigen [PSA] | CPT/HCPCS: 99214 ==

== ENCOUNTER 2024-05-05 23:56 | Outpatient (REF) | payer MEDICARE, SELFPAY ==
[2024-05-05 17:32] LABS: Bilirubin Negative (Negative); Blood Small (Negative); Clarity Cloudy (Clear); Glucose Negative (Negative); Ketones Negative (Negative); Leukocyte Esterase Moderate (Negative); Nitrite Negative (Negative); Specific Gravity 1.015 (1.005-1.025); Urobilinogen 0.2 mg/dL (Up to 0.2)
[2024-05-05 17:47] LABS: C & S Indicated? C&S Done As Ordered; WBC >50 HPF (0-5)
== END 2024-05-05 23:57 | disposition home or self-care (01) ==
LOC: LBN 23:56
PROVIDERS: PCP Nurse Practitioner; Visit Provider Urology
DX: R30.0 Dysuria (principal); R35.0 Frequency of micturition
CPT/HCPCS: 87077; 81003; 81015; 87086

== ENCOUNTER → 2024-05-06 14:27 | Outpatient (BNVA) | payer MEDICARE, SELFPAY | PROVIDERS: PCP Nurse Practitioner; Referring Provider Nurse Practitioner; Visit Provider Urology | DX: N39.0 Urinary tract infection, site not specified (principal) | CPT/HCPCS: 51798; 99214 ==

== ENCOUNTER 2024-05-24 19:08 | Outpatient (REF) | payer MEDICARE, SELFPAY ==
[2024-05-24 13:16] LABS: Bilirubin Negative (Negative); Blood Negative (Negative); Clarity Sl Cloudy (Clear); Glucose Negative (Negative); Ketones Negative (Negative); Leukocyte Esterase Negative (Negative); Nitrite Negative (Negative); Urobilinogen 0.2 mg/dL (Up to 0.2)
== END 2024-05-24 19:09 | disposition home or self-care (01) ==
LOC: LBN 19:08
PROVIDERS: PCP Nurse Practitioner; Visit Provider Urology
DX: R30.0 Dysuria (principal)
CPT/HCPCS: 81003; 87086

== ENCOUNTER 2024-06-22 06:39 | Emergency (ER) | payer MEDICARE, SELFPAY ==
[2024-06-22 06:43] VITALS: BP 177/122; PULSE 83; RESP 14; TEMP 36.2; O2SAT 100
[2024-06-22 06:49] VITALS: PULSE 89; RESP 14; TEMP 36.2; O2SAT 98
--- NOTE | 2024-06-22 07:08 | W.ED.GENAD ---
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 Please provide a custom foot with brace of the ankle, KELLI type boot or other combination. lisinopril 10 mg tablet 10 mg PO HS Qty: 90 3RF tamsulosin [Flomax] 0.4 mg capsule 0.4 mg PO DAILY Qty: 30 2RF acetaminophen [Tylenol Arthritis Pain] 650 mg tablet extended release 1,300 mg PO PRN THC 1 dose inhalation HS PRN sildenafil 50 mg tablet 50 mg PO DAILY PRN (Reason: sexual activity) Qty: 30 12RF Rx Instructions: administer 30 minutes to 4 hours before activity loratadine 10 mg tablet 10 mg PO DAILY sulfamethoxazole-trimethoprim 800-160 mg tablet 1 tab PO BID Qty: 6 0RF Discharge Instructions Instructions: Urinary Retention (DC) Additional Instructions: You were seen in the emergency department today for evaluation of urinary retention and had a Guerrero catheter placed. You do not have any evidence of urinary tract infection and the catheter will remain in place until you can be reevaluated by urology. Please continue to take all of your medications as prescribed, maintain good hydration and nutrition, and you should return to the emergency department if you develop fever or chills, shortness of breath, chest pain, abdominal pain, or any symptoms that cause you concern. Thank you for allowing us to be part of your care. Referrals: Alex Fernandez MD [ [facility]] - 1 week HPI General Date/Time Provider Initiated Documentation: 06/22/24 06:42. Limitations to Documentation: no limitations. Information obtained by: patient and old records reviewed. HPI Narrative: HPI: This is a 74-year-old male patient with a past medical history significant for BPH, with a history of urinary retention requiring catheter placement, last removed in March of this year, as well as hypertension, hyperlipidemia, who is presenting for evaluation of 12 hours of urinary retention. The patient reports that he has been in his normal state of health, last urinated about 12 hours ago and states that over the rest of the night he only dribbled. He reports that he feels lower abdominal pain and discomfort and has been unable to void since. He reports that this feels very similar to his last episode of urinary retention, which prompted him to seek care. He reports that he has not had fevers or chills, denies nausea or vomiting, does not have pain in any other area of his body. He has been taking his Flomax, and has not had any recent changes to his medications. He was scheduled for routine follow-up with urology in 1 month. Exam: Gen: Awake and alert, in no apparent distress HEENT: Non-icteric sclera Neck: Supple Lungs: No apparent respiratory distress, normal respiratory effort. CV: Appears well perfused, strong distal pulses, though there is fullness in the suprapubic region. The patient has tenderness over the suprapubic region without rigidity, rebound, or guarding Abdomen: Non-distended MSK: Moves 4 extremities without apparent limitation in ROM Skin: Visualized skin without rashes, cyanosis. Neuro: Normal Gait, no obvious focal deficits or facial asymmetry. Speaks in full, clear sentences. Psych: Appropriate for situation. MDM: This is a 74-year-old male patient presenting for evaluation of urinary retention. My differential includes but is not limited to BPH and prostatic obstruction, certainly considered urinary tract infection. I considered kidney injury in this patient, though with a very brief duration of symptoms (approximately 12 hours) this would have been unlikely to develop. I considered medication effects that the patient has been compliant with his Flomax and has not started any new medications which might contribute to urinary retention. The patient is eating and drinking normally and I have a low concern for metabolic or electrolyte derangement or dehydration. Considered renal stone, though the patient has no history of same. ED Course: Bladder scan with 600 mL of urine, and the patient was unable to void which is indication for Guerrero catheter placement. I will also obtain a urinalysis to evaluate for UTI and hematuria. At this time I do not see any indication for advanced imaging or further laboratory studies. Guerrero catheter placed without difficulty, 700 cc of urine drained, urinalysis with microscopic hematuria but no evidence of infectious findings. The patient had a complete resolution of his pain, remained hemodynamically appropriate, and was educated as to Guerrero care. A referral was placed for urology follow-up. At this time, the patient has had a full medical evaluation and is safe for discharge to home. They are hemodynamically stable, ambulatory, and tolerating PO. They are understanding of the follow-up plan and return precautions. They left our facility without incident. Pattie Wilkins MD Related Data Home Medications ?Medication ?Instructions ?Recorded ?Confirmed loratadine 10 mg tablet 10 mg PO DAILY 01/17/22 06/22/24 Custom Shoe and Brace #2 ea 10/15/22 06/22/24 acetaminophen 650 mg 1,300 mg PO PRN 06/18/23 06/22/24 tablet,extended release (Tylenol Arthritis Pain) THC 1 dose inhalation HS PRN 10/13/23 06/22/24 lisinopril 10 mg tablet 10 mg PO HS #90 tabs 12/23/23 06/22/24 tamsulosin 0.4 mg capsule (Flomax) 0.4 mg PO DAILY #30 caps 04/02/24 06/22/24 sildenafil 50 mg tablet 50 mg PO DAILY PRN sexual activity 04/16/24 06/22/24 #30 tabs sulfamethoxazole 800 1 tab PO BID #6 tabs 05/10/24 06/22/24 mg-trimethoprim 160 mg tablet Previous Rx's ?Medication ?Instructions ?Recorded Custom Shoe and Brace #2 ea 10/15/22 lisinopril 10 mg tablet 10 mg PO HS #90 tabs 12/23/23 tamsulosin 0.4 mg capsule (Flomax) 0.4 mg PO DAILY #30 caps 04/02/24 sildenafil 50 mg tablet 50 mg PO DAILY PRN sexual activity 04/16/24 #30 tabs sulfamethoxazole 800 1 tab PO BID #6 tabs 05/10/24 mg-trimethoprim 160 mg tablet Allergies Allergy/AdvReac Type Severity Reaction Status Date / Time Environmental Allergy Mild Rhinitis Uncoded 06/22/24 06:48 General Stated Complaint: Urinary ANDRZEJ: 3 Course Vital Signs Vital signs: Vital Signs Temperature 36.2 C L 06/22/24 06:43 Pulse 83 06/22/24 06:43 Respiratory Rate 14 06/22/24 06:43 Blood Pressure 177/122 H 06/22/24 06:43 Pulse Oximetry 100 06/22/24 06:43 Temperature 36.2 C L 06/22/24 06:49 Temperature Source Temporal Artery Scan 06/22/24 06:49 Pulse 89 06/22/24 06:49 Respiratory Rate 14 06/22/24 06:49 Respiratory Effort Normal 06/22/24 06:49 Blood Pressure 177/122 H 06/22/24 06:43 Blood Pressure Position Supine 06/22/24 06:43 Pulse Oximetry 98 06/22/24 06:49 Oxygen Delivery Method Room Air 06/22/24 06:49 Oxygen Flow Rate 0 06/22/24 06:43 Pain Level 8 06/22/24 06:49 Medical Decision Making Quality:SDOH Health Related Social Needs: No Data to Display PFSH All Active Problems (Updated 06/22/24 @ 07:36 by Pattie Wilkins MD) Acute urinary retention (Acute) Excessive cerumen in left ear canal (Acute) Nummular eczema (Acute ~02/2024) Left hand weakness (Acute) Left median nerve neuropathy (Acute) Wrist--[facility] Neuromuscular 09/25/23 Ulnar neuropathy at elbow of left upper extremity (Acute) [facility] Neuromuscular 09/25/23 Left upper limb pain (Acute) Left upper extremity numbness (Acute) Osteoarthritis of carpometacarpal joint of left thumb (Acute) Acquired cavovarus deformity of both feet (Acute) Arthritis of right ankle (Acute) Arthritis of left ankle (Acute) Acute on chronic blood loss anemia (Acute) Rectal bleeding (Acute) Arthritis of spine (Acute 02/02/14) Wqckrzb-Bdhsk-Kwivf disease type 1 (Acute 02/02/14) DJD (degenerative joint disease), cervical (Acute 10/08/17) 10/07/17 MRI central spinal stenosis. No cord impingment Elevated PSA (Acute 12/29/17) Erectile dysfunction of organic origin (Acute 03/14/17) Essential hypertension (Acute 06/19/16) Hyperlipidemia (Acute 03/07/14) PCEq risk 11.2%; LDL baseline 134; declines statin Low back pain (Acute 02/02/14) S/P carpal tunnel release (Acute 02/03/18) Sacral radiculopathy (Acute 02/02/14) Thyroid nodule (Acute 10/30/17) ENT 10/30/17 recheck in 6 months RH 04/30/18 thyroid US-no change in L sided nodule per ov note-LH 11/25/19 follow up in 1 yr. cgc Bilateral foot pain (Acute) reported 09/21/18-[facility]. Dr. Brando Franco. Witnessed apneic spells (Acute) SOB (shortness of breath) (Acute) 11/27/19 Sleep Study ( [facility]) Fatigue (Acute) Impacted cerumen of right ear (Acute) Sensorineural hearing loss (SNHL) of both ears (Acute) Collapse of left external ear canal (Acute) Obstructive sleep apnea (adult) (pediatric) (Acute) Insomnia, unspecified (Acute) Left thyroid nodule (Acute) Impacted cerumen, bilateral (Acute) Conductive hearing loss, external ear (Acute) Balance disorder (Acute) Gait disorder (Acute) SARS-CoV-2 positive (Acute ~01/27/22) Medical History (Updated 06/22/24 @ 07:36 by Pattie Wilkins MD) UTI (urinary tract infection) Surgical History History of carpal tunnel release (~02/2024) (left) Dr Orellana at History of carpal tunnel surgery of right wrist History of meniscectomy of left knee H/O foot surgery 1959' H/O colonoscopy H/O vasectomy Family History Other Cancer Muscular dystrophy Social History Smoking/Tobacco Use Status: Former Tobacco Use Quit Date: 04/14/85 Smoking risk assessment performed?: Yes Alcohol Intake: current Alcohol Intake frequency: 3 or more drinks per day Alcohol type: wine Details: 3 good glasses of wine a day. Drug use: Occasionally Substance use type: marijuana Household members: spouse Housing: house Number of Children: 1 Communication Needs: Hard of Hearing and Corrective Lenses Pets and animals: Yes (1 cat) Pets and animals: cat(s) What is your relationship status?: Panel score (0-1 are the most socially isolated patients): 1 Seatbelt use: always Drive intox or ride w/intox delivery driver: No Working smoke detector in home: Yes Fire extinguisher in home: Yes Carbon monox detector in home: No Do you feel safe at home: Yes Do you feel safe in your relationship?: Yes
[2024-06-22] MEDS: Lidocaine 2% Jelly 6 ML SYR (07:19)
[2024-06-22 07:22] LABS: Bilirubin Negative (Negative); Blood Trace-intact (Negative); Clarity Clear (Clear); Glucose Negative (Negative); Ketones Negative (Negative); Leukocyte Esterase Negative (Negative); Nitrite Negative (Negative); Specific Gravity 1.015 (1.005-1.025); Urobilinogen 0.2 mg/dL (Up to 0.2); pH 6.5 (5-8)
[2024-06-22 07:29] LABS: Bacteria Rare HPF (Negative); C & S Indicated? No; Crystals Negative HPF (Negative); Epithelial Cells Rare HPF (Negative); Mucus Negative (Negative); Other Cells Rare Renal (Negative); WBC 0-2 HPF (0-5)
[2024-06-22 07:33] VITALS: BP 150/93; PULSE 51; RESP 18; O2SAT 99
== END 2024-06-22 08:02 | disposition home or self-care (01) ==
PROVIDERS: Emergency Provider Emergency Medicine; PCP Nurse Practitioner
DX: R33.8 Other retention of urine (principal); I10 Essential (primary) hypertension
CPT/HCPCS: 51702; 51798; 99283; 81003; 81015

== ENCOUNTER → 2024-06-28 07:57 | Outpatient (BNVA) | payer MEDICARE, SELFPAY | PROVIDERS: PCP Nurse Practitioner; Referring Provider Nurse Practitioner; Visit Provider Nurse Practitioner Gerontology | DX: R33.8 Other retention of urine (principal); R97.20 Elevated prostate specific antigen [PSA] | CPT/HCPCS: 51798; 99213 ==

== ENCOUNTER 2024-07-01 09:36 | Outpatient (REF) | payer MEDICARE, SELFPAY | END 2024-07-01 09:37 | LOC: LBN 09:36 | PROVIDERS: PCP Nurse Practitioner; Visit Provider Nurse Practitioner Gerontology | DX: R33.8 Other retention of urine (principal); R82.89 Other abnormal findings on cytological and histological examination of urine | CPT/HCPCS: 87086 ==

== ENCOUNTER → 2024-07-01 11:25 | Outpatient (BNVA) | payer MEDICARE, SELFPAY | PROVIDERS: PCP Nurse Practitioner; Referring Provider Nurse Practitioner; Visit Provider Nurse Practitioner Gerontology | DX: R33.8 Other retention of urine (principal); R97.20 Elevated prostate specific antigen [PSA]; R39.9 Unspecified symptoms and signs involving the genitourinary system; B96.89 Other specified bacterial agents as the cause of diseases classified elsewhere | CPT/HCPCS: 51798; 81003; 99213 ==

== ENCOUNTER 2024-07-23 01:02 | Outpatient (CLI) | payer MEDICARE, SELFPAY | END 2024-07-23 01:03 | disposition home or self-care (01) | LOC: LBO 01:02 | PROVIDERS: PCP Nurse Practitioner; Visit Provider Urology | DX: R97.20 Elevated prostate specific antigen [PSA] (principal) | CPT/HCPCS: 36415; 84153 ==

== ENCOUNTER → 2024-07-30 08:15 | Outpatient (BNVA) | payer MEDICARE, SELFPAY | PROVIDERS: PCP Nurse Practitioner; Visit Provider Urology ==

== ENCOUNTER 2024-07-30 09:19 | Outpatient (CLI) | payer MEDICARE, SELFPAY ==
[2024-07-30 10:01] LABS: CREATININE 0.9 mg/dL (0.70-1.30); Estimated GFR 90.74 (mL/min/1.73m2)
== END 2024-07-30 09:20 | disposition home or self-care (01) ==
LOC: LBO 09:19
PROVIDERS: PCP Nurse Practitioner; Visit Provider Urology
DX: R39.9 Unspecified symptoms and signs involving the genitourinary system (principal); R97.20 Elevated prostate specific antigen [PSA]
CPT/HCPCS: 36415; 51798; 81003; 99214; 82565

== ENCOUNTER → 2024-09-14 10:53 | Outpatient (BNVA) | payer MEDICARE, SELFPAY | PROVIDERS: PCP Nurse Practitioner; Referring Provider Nurse Practitioner; Visit Provider Urology | DX: R97.20 Elevated prostate specific antigen [PSA] (principal); C61 Malignant neoplasm of prostate | CPT/HCPCS: 99214 ==

== ENCOUNTER → 2024-09-30 14:32 | Outpatient (BNVA) | payer MEDICARE, SELFPAY | PROVIDERS: PCP Nurse Practitioner; Referring Provider Nurse Practitioner; Visit Provider Urology | DX: C61 Malignant neoplasm of prostate (principal); R97.20 Elevated prostate specific antigen [PSA] | CPT/HCPCS: 55700; 76872 ==

== ENCOUNTER 2024-09-30 15:13 | Outpatient (REF) | payer MEDICARE, SELFPAY ==
--- NOTE | 2024-09-30 14:50 | PROST_PTH ---
PATIENT: Sincere Abernathy LOC: [facility] U#:[id number] AGE/SX: 74/M ROOM: RE09/30/[address]: lAex Fernandez MD : 1950 BED: DIS: 09/30/2024 SPEC #: [id number] RECD: 09/30/24 17:13 STATUS: ASHLEY RE #: [id number] RAQUEL: 09/30/24 14:[address]: Alex Fernandez DEPT: Surgical Specimen RECD BY: Eugenia Villa ENTERED: 09/30/24 17:14 SP TYPE: PROST OTHR DR: Anne-Marie Palencia APRN Tissues: 1 - PROSTATE NEEDLE BIOPSY 2 - PROSTATE NEEDLE BIOPSY 3 - PROSTATE NEEDLE BIOPSY 4 - PROSTATE NEEDLE BIOPSY 5 - PROSTATE NEEDLE BIOPSY 6 - PROSTATE NEEDLE BIOPSY 7 - PROSTATE NEEDLE BIOPSY 8 - PROSTATE NEEDLE BIOPSY 9 - PROSTATE NEEDLE BIOPSY 10 - PROSTATE NEEDLE BIOPSY 11 - PROSTATE NEEDLE BIOPSY 12 - PROSTATE NEEDLE BIOPSY Procedures: GROSS AND MICRO LEVEL 4 Comments: [id number]
== END 2024-09-30 15:14 | disposition home or self-care (01) ==
LOC: LBN 15:13
PROVIDERS: PCP Nurse Practitioner; Visit Provider Urology
DX: C61 Malignant neoplasm of prostate (principal)
CPT/HCPCS: 88305

== ENCOUNTER → 2024-10-15 10:53 | Outpatient (BNVA) | payer MEDICARE, SELFPAY | PROVIDERS: PCP Nurse Practitioner; Referring Provider Nurse Practitioner; Visit Provider Urology | DX: C61 Malignant neoplasm of prostate (principal) | CPT/HCPCS: 99214 ==

== ENCOUNTER → 2024-10-25 16:12 | Outpatient (BNVA) | payer MEDICARE, SELFPAY | PROVIDERS: PCP Nurse Practitioner; Referring Provider Nurse Practitioner; Visit Provider Urology | DX: C61 Malignant neoplasm of prostate (principal) | CPT/HCPCS: 99213 ==

== ENCOUNTER → 2024-10-26 13:59 | Outpatient (BNVA) | payer MEDICARE, SELFPAY | PROVIDERS: PCP Nurse Practitioner; Referring Provider Nurse Practitioner; Visit Provider Urology | DX: C61 Malignant neoplasm of prostate (principal) | CPT/HCPCS: 96402; J9155 ==

== ENCOUNTER 2024-12-13 01:43 | Outpatient (CLI) | payer MEDICARE, SELFPAY ==
[2024-12-13 11:22] LABS: ALT 80 U/L (16-63); AST 28 U/L (15-37); Albumin 3.8 g/dL (3.4-5.0); Alkaline Phosphatase 99 U/L (46-116); Anion Gap 8.5 mmol/L (3-11); BUN 17 mg/dL (7-18); Bilirubin, Total 0.8 mg/dL (0.2-1.0); CO2 27.5 mmol/L (21.0-32.0); CREATININE 0.8 mg/dL (0.70-1.30); Calcium 9.3 mg/dL (8.5-10.1); Calculated LDL 113 mg/dL (<100); Chloride 109 mmol/L (98-107); Cholesterol 217 mg/dL (<200); Estimated GFR 94.03 (mL/min/1.73m2); Glucose 88 mg/dL (74-106); HDL Cholesterol 59 mg/dL (>or=40); Potassium 3.8 mmol/L (3.5-5.1); Sodium 145 mmol/L (136-145); Total Protein 7.2 g/dL (6.4-8.2); Triglyceride 228 mg/dL (<150)
[2024-12-16 15:12] LABS: Testosterone, Total <7.0 ng/dL (240-950)
== END 2024-12-13 01:44 | disposition home or self-care (01) ==
LOC: LBO 01:44
PROVIDERS: PCP Nurse Practitioner; Visit Provider Internal Medicine
DX: I10 Essential (primary) hypertension (principal); E78.5 Hyperlipidemia, unspecified
CPT/HCPCS: 36415; 80053; 80061; 84403

== ENCOUNTER 2024-12-21 12:23 | Outpatient (CLI) | payer MEDICARE, SELFPAY ==
[2024-12-21 12:03] LABS: Abs Immature Grans 0.02 10^3/uL (0.0-0.06); Absolute Basophil Count 0.05 10^3/uL (0.0-0.2); Absolute Eosinophil Count 0.21 10^3/uL (0.0-0.7); Absolute Lymphocyte Count 1.78 10^3/uL (1.2-3.4); Absolute Monocyte Count 0.54 10^3/uL (0.1-0.8); Absolute Neutrophil Count 5.17 10^3/uL (1.2-6.7); Basophils % 0.6 %; Eosinophils % 2.7 %; HGB 13.9 g/dL (13.5-17.5); Immature Grans % 0.3 %; Lymphocytes % 22.9 %; MCH 31.7 pg (27.0-33.0); MCHC 33.9 % (32.0-36.0); MCV 94 fL (80-95); MPV 9.8 fL (8.0-11.0); Monocytes % 6.9 %; Neutrophils % 66.6 %; Platelet Count 299 10^3/uL (130-400); RBC 4.38 10^6/uL (4.36-5.78); RDW 12.8 % (11.8-14.1); RDW-SD 44.2 fL; WBC 7.77 10^3/uL (4.4-10.8)
[2024-12-21 12:36] LABS: ALT 55 U/L (16-63); AST 24 U/L (15-37); Albumin 3.9 g/dL (3.4-5.0); Alkaline Phosphatase 95 U/L (46-116); Anion Gap 8.5 mmol/L (3-11); BUN 15 mg/dL (7-18); Bilirubin, Total 0.9 mg/dL (0.2-1.0); CO2 27.5 mmol/L (21.0-32.0); CREATININE 0.8 mg/dL (0.70-1.30); Calcium 9.5 mg/dL (8.5-10.1); Chloride 107 mmol/L (98-107); Estimated GFR 94.03 (mL/min/1.73m2); Glucose 101 mg/dL (74-106); Potassium 3.9 mmol/L (3.5-5.1); Sodium 143 mmol/L (136-145); Total Protein 7.4 g/dL (6.4-8.2)
[2024-12-21 12:39] LABS: ALT 54 U/L (16-63); AST 25 U/L (15-37); Albumin 3.9 g/dL (3.4-5.0); Alkaline Phosphatase 96 U/L (46-116); Bilirubin, Direct 0.2 mg/dL (0.0-0.2); Bilirubin, Total 0.9 mg/dL (0.2-1.0); Total Protein 7.5 g/dL (6.4-8.2)
[2024-12-22 12:54] LABS: Hepatitis A Antibody IgM Negative (Negative); Hepatitis B Core Antibody Negative (Negative); Hepatitis B surface Ag Negative (Negative); Hepatitis C Ab w Rflx HCV PCR Negative (Negative)
[2024-12-27 10:41] LABS: PSA, Ultrasensitive 1.7 ng/mL (<= 6.5)
== END 2024-12-21 12:24 | disposition home or self-care (01) ==
LOC: LBO 12:24
PROVIDERS: PCP Nurse Practitioner; Visit Provider Internal Medicine
DX: R79.89 Other specified abnormal findings of blood chemistry (principal); C61 Malignant neoplasm of prostate
CPT/HCPCS: 36415; 80053; 80076; 84153; 86704; 86709; 86803; 87340; 85025

== ENCOUNTER 2025-01-04 03:43 | Outpatient (CLI) | payer MEDICARE, SELFPAY ==
[2025-01-04 11:26] LABS: ALT 51 U/L (16-63); AST 28 U/L (15-37); Albumin 3.8 g/dL (3.4-5.0); Alkaline Phosphatase 97 U/L (46-116); Anion Gap 6.1 mmol/L (3-11); BUN 15 mg/dL (7-18); Bilirubin, Total 0.9 mg/dL (0.2-1.0); CO2 27.9 mmol/L (21.0-32.0); Calcium 9.6 mg/dL (8.5-10.1); Chloride 108 mmol/L (98-107); Estimated GFR 79.97 (mL/min/1.73m2); Glucose 105 mg/dL (74-106); Potassium 4.2 mmol/L (3.5-5.1); Sodium 142 mmol/L (136-145); Total Protein 7.4 g/dL (6.4-8.2)
== END 2025-01-04 03:44 | disposition home or self-care (01) ==
PROVIDERS: PCP Nurse Practitioner; Visit Provider Nurse Practitioner
DX: C61 Malignant neoplasm of prostate (principal); C79.51 Secondary malignant neoplasm of bone; Z79.818 Long term (current) use of other agents affecting estrogen receptors and estrogen levels
CPT/HCPCS: 36415; 80053

== ENCOUNTER 2025-01-26 03:30 | Outpatient (CLI) | payer MEDICARE, SELFPAY ==
[2025-01-26 10:38] LABS: Abs Immature Grans 0.02 10^3/uL (0.0-0.06); Absolute Basophil Count 0.04 10^3/uL (0.0-0.2); Absolute Eosinophil Count 0.41 10^3/uL (0.0-0.7); Absolute Lymphocyte Count 2.25 10^3/uL (1.2-3.4); Absolute Monocyte Count 0.69 10^3/uL (0.1-0.8); Basophils % 0.5 %; Eosinophils % 5.6 %; HCT 38.6 % (40.0-50.0); HGB 12.8 g/dL (13.5-17.5); Immature Grans % 0.3 %; Lymphocytes % 30.8 %; MCH 31.5 pg (27.0-33.0); MCHC 33.2 % (32.0-36.0); MCV 95 fL (80-95); MPV 9.5 fL (8.0-11.0); Monocytes % 9.4 %; Neutrophils % 53.4 %; Platelet Count 295 10^3/uL (130-400); RBC 4.06 10^6/uL (4.36-5.78); RDW 13.1 % (11.8-14.1); RDW-SD 45.7 fL; WBC 7.31 10^3/uL (4.4-10.8)
[2025-01-26 11:08] LABS: ALT 42 U/L (16-63); AST 28 U/L (15-37); Albumin 3.7 g/dL (3.4-5.0); Alkaline Phosphatase 86 U/L (46-116); Anion Gap 8.3 mmol/L (3-11); BUN 17 mg/dL (7-18); Bilirubin, Total 0.6 mg/dL (0.2-1.0); CO2 28.7 mmol/L (21.0-32.0); CREATININE 0.9 mg/dL (0.70-1.30); Calcium 9.2 mg/dL (8.5-10.1); Chloride 105 mmol/L (98-107); Estimated GFR 90.74 (mL/min/1.73m2); Glucose 99 mg/dL (74-106); Sodium 142 mmol/L (136-145); Total Protein 7.2 g/dL (6.4-8.2)
[2025-01-28 11:21] LABS: PSA, Ultrasensitive 1.5 ng/mL (<= 6.5)
[2025-02-01 11:52] LABS: Testosterone, Total <7.0 ng/dL (240-950)
== END 2025-01-26 03:31 | disposition home or self-care (01) ==
LOC: LBO 03:30
PROVIDERS: PCP Nurse Practitioner; Visit Provider Internal Medicine
DX: C61 Malignant neoplasm of prostate (principal); C79.51 Secondary malignant neoplasm of bone
CPT/HCPCS: 36415; 80053; 84153; 84403; 85025

== ENCOUNTER 2025-03-08 03:04 | Outpatient (CLI) | payer MEDICARE, SELFPAY ==
[2025-03-08 10:45] LABS: Abs Immature Grans 0.02 10^3/uL (0.0-0.06); Absolute Basophil Count 0.04 10^3/uL (0.0-0.2); Absolute Eosinophil Count 0.26 10^3/uL (0.0-0.7); Absolute Lymphocyte Count 2.08 10^3/uL (1.2-3.4); Absolute Monocyte Count 0.45 10^3/uL (0.1-0.8); Absolute Neutrophil Count 3.93 10^3/uL (1.2-6.7); Basophils % 0.6 %; Eosinophils % 3.8 %; HCT 38.8 % (40.0-50.0); HGB 12.9 g/dL (13.5-17.5); Immature Grans % 0.3 %; Lymphocytes % 30.7 %; MCH 32.5 pg (27.0-33.0); MCHC 33.2 % (32.0-36.0); MCV 98 fL (80-95); Monocytes % 6.6 %; Platelet Count 291 10^3/uL (130-400); RBC 3.97 10^6/uL (4.36-5.78); RDW 12.2 % (11.8-14.1); WBC 6.78 10^3/uL (4.4-10.8)
[2025-03-08 11:02] LABS: ALT 41 U/L (16-63); AST 22 U/L (15-37); Albumin 3.9 g/dL (3.4-5.0); Alkaline Phosphatase 89 U/L (46-116); Anion Gap 9.4 mmol/L (3-11); BUN 15 mg/dL (7-18); Bilirubin, Total 0.5 mg/dL (0.2-1.0); CO2 27.6 mmol/L (21.0-32.0); CREATININE 0.8 mg/dL (0.70-1.30); Calcium 9.3 mg/dL (8.5-10.1); Chloride 106 mmol/L (98-107); Estimated GFR 94.03 (mL/min/1.73m2); Glucose 96 mg/dL (74-106); Potassium 3.9 mmol/L (3.5-5.1); Sodium 143 mmol/L (136-145); Total Protein 7.2 g/dL (6.4-8.2)
[2025-03-10 11:10] LABS: PSA, Ultrasensitive 1.1 ng/mL (<= 6.5)
[2025-03-16 08:45] LABS: Testosterone, Total <7.0 ng/dL (240-950)
== END 2025-03-08 03:05 | disposition home or self-care (01) ==
PROVIDERS: PCP Nurse Practitioner; Visit Provider Internal Medicine
DX: C61 Malignant neoplasm of prostate (principal); C79.51 Secondary malignant neoplasm of bone
CPT/HCPCS: 36415; 80053; 84153; 84403; 85025

== ENCOUNTER 2025-05-03 02:05 | Outpatient (CLI) | payer MEDICARE, SELFPAY ==
[2025-05-03 10:47] LABS: Abs Immature Grans 0.02 10^3/uL (0.0-0.06); HCT 39.1 % (40.0-50.0); HGB 13.2 g/dL (13.5-17.5); Immature Grans % 0.3 %; MCH 32.0 pg (27.0-33.0); MCHC 33.8 % (32.0-36.0); MCV 95 fL (80-95); MPV 9.6 fL (8.0-11.0); Platelet Count 331 10^3/uL (130-400); RBC 4.12 10^6/uL (4.36-5.78); RDW 12.3 % (11.8-14.1); RDW-SD 43.0 fL; WBC 7.29 10^3/uL (4.4-10.8)
[2025-05-03 11:30] LABS: ALT 38 U/L (16-63); AST 19 U/L (15-37); Albumin 3.9 g/dL (3.4-5.0); Alkaline Phosphatase 99 U/L (46-116); Anion Gap 9.9 mmol/L (3-11); BUN 18 mg/dL (7-18); Bilirubin, Total 0.6 mg/dL (0.2-1.0); CO2 27.1 mmol/L (21.0-32.0); Calcium 9.3 mg/dL (8.5-10.1); Chloride 105 mmol/L (98-107); Estimated GFR 101.93 (mL/min/1.73m2); Glucose 95 mg/dL (74-106); Potassium 3.8 mmol/L (3.5-5.1); Sodium 142 mmol/L (136-145); Total Protein 7.5 g/dL (6.4-8.2)
== END 2025-05-03 02:06 | disposition home or self-care (01) ==
LOC: LBO 02:06
PROVIDERS: PCP Nurse Practitioner; Visit Provider Internal Medicine
DX: C61 Malignant neoplasm of prostate (principal); C79.51 Secondary malignant neoplasm of bone
CPT/HCPCS: 36415; 80053; 84153; 84403; 85025

== ENCOUNTER 2025-08-03 03:29 | Outpatient (CLI) | payer MEDICARE, SELFPAY ==
[2025-08-03 10:27] LABS: Abs Immature Grans 0.01 10^3/uL (0.0-0.06); HCT 38.0 % (40.0-50.0); HGB 12.6 g/dL (13.5-17.5); Immature Grans % 0.2 %; MCH 30.7 pg (27.0-33.0); MCHC 33.2 % (32.0-36.0); MCV 93 fL (80-95); MPV 9.7 fL (8.0-11.0); Platelet Count 322 10^3/uL (130-400); RBC 4.10 10^6/uL (4.36-5.78); RDW 12.6 % (11.8-14.1); RDW-SD 43.2 fL; WBC 6.45 10^3/uL (4.4-10.8)
[2025-08-03 10:59] LABS: ALT 24 U/L (10-49); AST 21 U/L (<34); Albumin 4.2 g/dL (3.4-5.0); Alkaline Phosphatase 98 U/L (46-116); Anion Gap 7.7 mmol/L (3-11); BUN 16 mg/dL (9-23); Bilirubin, Total 0.70 mg/dL (0.2-1.2); CO2 29.3 mmol/L (20.0-31.0); Calcium 9.6 mg/dL (8.3-10.6); Chloride 107 mmol/L (98-107); Glucose 92 mg/dL (74-106); Potassium 4.5 mmol/L (3.5-5.1); Sodium 144 mmol/L (136-145); Total Protein 6.7 g/dL (5.7-8.2)
== END 2025-08-03 03:30 | disposition home or self-care (01) ==
LOC: LBO 03:29
PROVIDERS: Visit Provider Internal Medicine
DX: C61 Malignant neoplasm of prostate (principal); C79.51 Secondary malignant neoplasm of bone
CPT/HCPCS: 36415; 80053; 84153; 84403; 85025